=== PATIENT | female | born 1970 | race Caucasian/White ===

== ENCOUNTER → 2023-11-17 14:33 | Outpatient (BNVA) | payer OTHER, SELFPAY | PROVIDERS: Visit Provider Nurse Practitioner Family | DX: R39.9 Unspecified symptoms and signs involving the genitourinary system | CPT/HCPCS: 81000 ==

== ENCOUNTER → 2023-12-18 10:05 | Outpatient (BNVA) | payer OTHER, SELFPAY | PROVIDERS: Visit Provider Family Medicine | DX: I10 Essential (primary) hypertension (principal) | CPT/HCPCS: 80053; 80061; 82043; 84443; 85025 ==

== ENCOUNTER → 2024-03-16 10:35 | Outpatient (BNVA) | payer OTHER, SELFPAY | PROVIDERS: Visit Provider Family Medicine | DX: R30.0 Dysuria (principal); Z13.6 Encounter for screening for cardiovascular disorders; M15.9 Polyosteoarthritis, unspecified; E78.5 Hyperlipidemia, unspecified; F41.1 Generalized anxiety disorder; I10 Essential (primary) hypertension; Z12.11 Encounter for screening for malignant neoplasm of colon | CPT/HCPCS: 81000; 85025 ==

== ENCOUNTER → 2024-03-19 07:48 | Outpatient (BNVA) | payer OTHER, SELFPAY | PROVIDERS: Visit Provider Family Medicine | DX: E78.5 Hyperlipidemia, unspecified (principal); K21.9 Gastro-esophageal reflux disease without esophagitis; I10 Essential (primary) hypertension; Z76.89 Persons encountering health services in other specified circumstances; M15.9 Polyosteoarthritis, unspecified; Z13.6 Encounter for screening for cardiovascular disorders; R30.0 Dysuria | CPT/HCPCS: 80053; 85025; 85651; 86038; 86140; 86200; 86431; 87086 ==

== ENCOUNTER 2024-03-25 10:10 | Day surgery (SDC) | payer OTHER, SELFPAY ==
[2024-03-25 10:27] VITALS: BP 140/92; PULSE 92; RESP 18; TEMP 36.4; O2SAT 94; BMI 33.5
[2024-03-25] MEDS: sodium chloride 0.9% 1,000 ML 30 ML IV (10:39)
--- NOTE | 2024-03-25 11:18 | ANES.PREANE2 ---
Pre-Anesthetic Assessment Height/Weight: Height 1.63 m Weight 88.451 kg Temp Pulse Resp BP Pulse Ox O2 Del Method 97.5 F L 92 18 140/92 94 Room Air 03/25/24 10:27 03/25/24 10:27 03/25/24 10:27 03/25/24 10:27 03/25/24 10:27 03/25/24 10:27 Preop Diagnosis: GERD/Screening Operation Date: 03/25/24 11:20 Proposed Procedures p EGD 06557, 37021, G0105, K21.9, Z12.11(Not Applicable) - Wesley Jaeger MD s Colonoscopy(Not Applicable) - Wesley Jaeger MD Familial anesthetic complications: None Was Beta Roldan taken within 24 hours: N/A Was Clonidine taken within 24 hours: N/A Last intake: Intake Last Liquid Date 03/24/24 Last Liquid Time 23:00 Last Solid Date 03/23/24 Last Solid Time 18:00 Social No alcohol and No tobacco Exam alert, oriented x 3, clear to auscultation bilaterally and regular rate & rhythm Airway Submandibular: within normal limits Cervical ROM: Other (Decreased ROM) Mallampati: Class III Comments: Comments: Missing History/ROS No significant history except as noted and No significant complaints Pulmonary Asthma and Sleep Apnea (CPAP) CV/HEM Hypertension Urinary Tract Infection Hx kidney stones Hepatic None reported GI Gastroesophageal Reflux Disease (Well controlled with meds) Metabolic Hyperlipidemia [facility] [place] Lower Back Pain and Osteoarthritis/DJD Neuropsych Anxiety, Depression and Neuropathy Anesthetic Plan ASA status: 3 Anesthesia: Anesthesia Evaluation, General and MAC Risk of > 500 ml blood loss (7ml/kg in children): No Medications/Allergies Home Medications Medication Instructions Recorded Confirmed Last Taken Type tizanidine 2 mg tablet 2 mg PO TID PRN muscle spasticity 12/18/23 03/25/24 03/24/24 Rx #270 tabs atorvastatin 40 mg tablet 40 mg PO DAILY #90 tabs 03/16/24 03/25/24 03/24/24 Rx duloxetine 30 mg capsule,delayed 30 mg PO DAILY #90 caps 03/16/24 03/25/24 03/24/24 Rx release (Cymbalta) duloxetine 60 mg capsule,delayed 60 mg PO DAILY #90 caps 03/16/24 03/25/24 03/24/24 Rx release lisinopril 20 mg tablet 20 mg PO DAILY #90 tabs 03/16/24 03/25/24 03/24/24 Rx nitrofurantoin macrocrystal 100 mg 100 mg PO BID #20 caps 03/16/24 03/25/24 03/24/24 Rx capsule pantoprazole 40 mg tablet,delayed 40 mg PO BID #180 tabs 03/16/24 03/25/24 03/24/24 Rx release Allergies Allergy/AdvReac Type Severity Reaction Status Date / Time No Known Allergies Allergy Unverified 03/23/24 11:37 Current Medications Generic Name Dose Route Start Last Admin Trade Name Freq PRN Reason Stop Dose Admin Sodium Chloride 1,000 mls @ 30 mls/hr 03/25/24 10:30 03/25/24 10:39 Sodium Chloride 0.9% IV 30 mls/hr .Q24H SREEDHAR Administration PFSH Anesthesia Medical History History of kidney stones Stent x 2, lithotripsy x 2 Dyslipidemia Osteoarthritis involving multiple joints on both sides of body ELDER (generalized anxiety disorder) Major depressive disorder GERD (gastroesophageal reflux disease) Benign essential HTN Surgical History History of partial hysterectomy 2016 History of cholecystectomy History of delivery x 4 Family History Grandmother Diabetes mellitus, type 2 Heart disease Hypertension Mother Hypertension Stroke Social History Smoking and tobacco/nicotine status: never used tobacco/nicotine Alcohol intake: current Alcohol intake frequency: holidays/special occasions only Substance/Drug Use: never Household members: spouse and children Housing: House Marital status: Highest education level completed: Associate Degree: Occupational, Technical, Vocational Program Current occupational status: employed Data Anesthesia Cardiac Studies: No Data to Display
--- NOTE | 2024-03-25 11:28 | W.PM.OPSFHP ---
Same Day Surgery H&P Indication for Procedure/HPI DATE OF PROCEDURE: March 25, 2024 CHIEF COMPLAINT/INDICATIONFOR SURGICAL PROCEDURE: GERD and need for screening colonoscopy PREOP DIAGNOSIS: GERD/Screening PLANNED PROCEDURE: Operation Date: 03/25/24 11:20 Proposed Procedures p EGD 77410, 81030, G0105, K21.9, Z12.11(Not Applicable) - Wesley Jaeger MD s Colonoscopy(Not Applicable) - Wesley Jaeger MD Medications/Allergies* Allergies/Adverse Reactions Allergy/AdvReac Type Severity Reaction Status Date / Time No Known Allergies Allergy Unverified 03/23/24 11:37 Current Medications: Generic Name Dose Route Start Last Admin Trade Name Freq PRN Reason Stop Dose Admin Sodium Chloride 1,000 mls @ 30 mls/hr 03/25/24 10:30 03/25/24 10:39 Sodium Chloride 0.9% IV 30 mls/hr .Q24H SREEDHAR Administration Pertinent History/Comorbid Conditions* Medical History (Updated 03/24/24 @ 07:22 by Dania Hinojosa DO) History of kidney stones Stent x 2, lithotripsy x 2 Dyslipidemia Osteoarthritis involving multiple joints on both sides of body ELDER (generalized anxiety disorder) Major depressive disorder GERD (gastroesophageal reflux disease) Benign essential HTN Surgical History (Updated 12/18/23 @ 09:42 by Dania Hinojosa DO) History of partial hysterectomy 2016 History of cholecystectomy History of delivery x 4 Family History (Updated 12/18/23 @ 09:15 by Pallavi Brandon LPN) Grandmother Mother Diabetes mellitus, type 2 Grandmother Heart disease Grandmother Hypertension Grandmother Mother Stroke Mother Social History Smoking and tobacco/nicotine status: never used tobacco/nicotine Alcohol intake: current Alcohol intake frequency: holidays/special occasions only Substance/Drug Use: never Household members: spouse and children Housing: House Marital status: Highest education level completed: Associate Degree: Occupational, Technical, Vocational Program Current occupational status: employed Pertinent Exam Findings alert, oriented x 3, clear to auscultation bilaterally and regular rate & rhythm Recommendations Surgery/Procedure today Coding Level of Care Code Acute Code for Chg Fwd
[2024-03-25 12:45] VITALS: BP 141/83; PULSE 67; RESP 18; TEMP 36.2; O2SAT 95
[2024-03-25 12:57] VITALS: BP 137/99; PULSE 72; RESP 18; TEMP 36.2; O2SAT 95
--- NOTE | 2024-03-25 13:20 | ANE.PACU2 ---
Inpatient post-anesthesia follow up: Airway intact: Yes Vital signs: Temperature 97.2 F Pulse Rate 72 Respiratory Rate 18 Blood Pressure 137/99 Pulse Oximetry 95 Oxygen Delivery Me thod Room Air Oxygen Flow Rate Fraction of Inspir ed Oxygen Hydration adequate: Yes Nausea and vomiting: No Pain level: 1 Mental status: Baseline
== END 2024-03-25 13:20 | disposition home or self-care (01) ==
PROVIDERS: PCP Family Medicine; Visit Provider Surgery
PROC: 0DJ08ZZ Inspection of Upper Intestinal Tract, Via Natural or Artificial Opening Endoscopic (ICD-10-PCS; CPT 43235; principal; 2024-03-25 11:20)
PROC: 0DJD8ZZ Inspection of Lower Intestinal Tract, Via Natural or Artificial Opening Endoscopic (ICD-10-PCS; CPT 45330; 2024-03-25 11:20)
DX: Z12.11 Encounter for screening for malignant neoplasm of colon (principal); K21.9 Gastro-esophageal reflux disease without esophagitis; K29.50 Unspecified chronic gastritis without bleeding; K57.30 Diverticulosis of large intestine without perforation or abscess without bleeding; E78.5 Hyperlipidemia, unspecified; F41.1 Generalized anxiety disorder; F32.A Depression, unspecified; I10 Essential (primary) hypertension; K44.9 Diaphragmatic hernia without obstruction or gangrene
CPT/HCPCS: 43239; 45330; 88305; 88342; J2704; J3010; J7030

== ENCOUNTER 2024-04-30 09:46 | Outpatient (CLI) | payer OTHER, SELFPAY ==
--- NOTE | 2024-04-30 10:00 | MM_ITS ---
WS: [id number] BILATERAL SCREENING DIGITAL TOMOSYNTHESIS MAMMOGRAM WITH CAD HISTORY: screening COMPARISON: 02/21/2021, 11/30/2018 Bilateral CC and MLO views with tomosynthesis and synthetic mammography submitted. Computer aided det ection analyzed. Breast composition: The breasts are heterogeneously dense, which may obscure small masses. No suspici ous masses, microcalcifications or architectural distortion. Scattered calcifications within each sommer ast. MM/[place] [id number] IMPRESSION: BI-RADS: 2-Benign FOLLOW UP: 1 Year Follow-up
== END 2024-04-30 09:47 | disposition home or self-care (01) ==
LOC: RAD 09:47
PROVIDERS: PCP Family Medicine; Visit Provider Family Medicine
DX: Z12.31 Encounter for screening mammogram for malignant neoplasm of breast (principal); R92.333 Mammographic heterogeneous density, bilateral breasts; R92.1 Mammographic calcification found on diagnostic imaging of breast
CPT/HCPCS: 77063; 77067

== ENCOUNTER 2024-05-12 09:18 | Emergency (ER) | payer OTHER, SELFPAY ==
--- NOTE | 2024-05-12 09:39 | CT_ITS ---
WS: [id number] CT ABDOMEN AND PELVIS NONCONTRAST HISTORY: flank pain TECHNIQUE: Imaging performed through the abdomen and pelvis. Coronal and sagittal reformats are submi tted. All CT scans at [facility] use at least one of these dose optimization techniques: auto mated exposure control; mA and/or kV adjustment per patient size (includes targeted exams where dose is matched to clinical indication); or iterative reconstruction. DLP: 926.46 mGy.cm COMPARISON: 01/29/2013 Lower thorax: Lung bases are clear. Visualized heart is normal. No hiatal hernia. Liver: Normal size liver. No mass or bile duct dilatation. Gallbladder: Prior cholecystectomy. Normal common bile duct. Pancreas: Normal size and attenuation. Normal pancreatic duct. No pancreatitis or mass. Spleen: Normal. Adrenal glands: Normal. No mass. Right kidney: Normal size kidney. Very minimal peripancreatic stranding and edema. No obstruction. Left kidney: LEFT kidney is normal size. There 2 masses associated with the LEFT kidney. Which is sup erior pole there is a cystic mass measuring 5.5 x 6.1 x 6.7 cm with low Hounsfield units. This mass w as also described in 2013 but is increased in size. There is a new hyperdense mass with elevated Houn sfield units measuring 3.9 x 4.5 x 4.2 cm. This additional hyperdense masses in the mid posterior kid tom. Small extrarenal pelvis. No ureteral calcifications. Aorta: Mild atherosclerosis abdominal aorta with no aneurysm. Small mesenteric and celiac axis lymph nodes. Small RIGHT lower quadrant lymph nodes. GI tract: Stomach is nondistended. No small bowel obstruction. Appendix is normal. Mild diffuse const ipation. Numerous diverticula without acute diverticulitis. Abdominal wall: Negative. No hernia. Pelvis: Prior hysterectomy. No pelvic masses or free fluid. Urinary bladder is not distended. Osseous structures: Mixed sclerotic and lytic lesion in the RIGHT femoral neck stable since 2012. CT/CT abdomen pelvis wo con [id number] IMPRESSION: 1. No renal obstruction or hydronephrosis. 2. New high density mass in the posterior mid LEFT kidney measures 3.9 x 4.5 x 4.2 cm. Indeterminate for neoplasm. This may be a cyst with increased protein content or hemorrhage or neoplasm. Recommend follow-up renal ultrasound. This c yst may not be visible by ultrasound due to patient's body habitus and location . Recommend ultrasound initially. If this mass cannot be confirmed as a cyst CT renal mass protocol should be obtained. 3. Additional cyst in the superior pole LEFT kidney with mild increase in size since 2012. This cyst measures 5.5 x 6.1 x 6.7 cm. 4. Prior cholecystectomy. 5. Normal appendix. 6. Mild diverticular disease without acute diverticulitis. 7. No adenopathy.
[2024-05-12 09:41] VITALS: BP 150/95; PULSE 80; RESP 18; TEMP 36.8; O2SAT 95; BMI 33.5
[2024-05-12 10:01] LABS: Bilirubin Urine Negative (Negative); Blood Urine Negative (Negative); Glucose Urine UA Negative (Normal); Ketones Urine Negative (Negative); Leukocyte Esterase Urine Trace (Negative); Nitrate Urine Negative (Negative); Protein Urine Negative (Negative); Specific Gravity, Urine 1.026 (1.005-1.030); Urine Appearance Clear (CLEAR); Urine Color Yellow (Yellow)
[2024-05-12 10:01] LABS: Basophils # 0.1 10^3/uL (0.0-0.1); Basophils % 0.9 %; Eosinophils # 0.2 10^3/uL (0.0-0.8); Hematocrit 39.3 % (36-47); Lymphocytes # 1.5 10^3/uL (0.8-4.8); Lymphocytes % 22.9 %; Mean Corpuscular HGB Conc 32.1 g/dL (30-55); Mean Corpuscular Hemoglobin 29.6 pg (27-33); Mean Corpuscular Volume 92.3 fl (85-98); Mean Platelet Volume 9.6 fL (7.4-10.4); Monocytes # 0.5 10^3/uL (0.2-0.9); Monocytes % 7.3 %; Neutrophils # 4.43 10^3/uL (1.8-7.7); Neutrophils % 65.8 %; Nucleated Red Blood Cells % 0 %; Platelet Count 305 10^3/cmm (157-399); Red Blood Count 4.26 10^6/uL (3.85-5.65); Red Cell Distribution Width 13.3 % (12.1-15.1); White Blood Count 6.73 10^3/uL (3.29-11.43)
[2024-05-12 10:03] LABS: Bacteria Urine Trace /hpf; Hyaline Casts Urine 1.65 /lpf; RBC Urine 0-2 /hpf (0-2); WBC Urine 0-5 /hpf (0-5)
--- NOTE | 2024-05-12 10:09 | ED_ITS ---
HPI - Back Pain/Injury 2 General: Chief Complaint: Back Pain/Injury Stated Complaint: back/abd pain Time Seen by Provider: 05/12/24 09:33 History of Present Illness: 53-year-old female who presents emergenc y room with right flank pain. She says felt like it started when she was lifting something heavy at work. On the right side. But today it started hurting into her abdomen. She has tender spots throughout her right abdomen. Nothing really focal. She has some pain with movement. No dysuria. No fevers. No nausea or vomiting. Review of Systems 2 Narrative: Constitutional symptoms: Negative except as documented in HPI. Skin symptoms: Negative except as documented in HPI. Eye symptoms: Negative except as documented in HPI. ENMT symptoms: Negative except as documented in HPI. Respiratory symptoms: Negative except as documented in HPI. Cardiovascular symptoms: Negative except as documented in HPI. Gastrointestinal symptoms: Negative except as documented in HPI. Genitourinary symptoms: Negative except as documented in HPI. Musculoskeletal symptoms: Negative except as documented in HPI. Neurologic symptoms: Negative except as documented in HPI. Psychiatric symptoms: Negative except as documented in HPI. Endocrine symptoms: Negative except as documented in HPI. PFSH ED 2 PFSH: Medical History History of kidney stones Stent x 2, lithotripsy x 2 Dyslipidemia Osteoarthritis involving multiple joints on both sides of body ELDER (generalized anxiety disorder) Major depressive disorder GERD (gastroesophageal reflux disease) Benign essential HTN Surgical History History of partial hysterectomy 2016 History of cholecystectomy History of delivery x 4 Family History Grandmother Diabetes mellitus, type 2 Heart disease Hypertension Mother Hypertension Stroke Social History Smoking and tobacco/nicotine status: never used tobacco/nicotine Alcohol intake: current Alcohol intake frequency: holidays/special occasions only Substance/Drug Use: never Household members: spouse and children Housing: House Marital status: Highest education level completed: Associate Degree: Occupational, Technical, Vocational Program Current occupational status: employed Physical Exam 2 Narrative: EXAM NARRATIVE: General: Alert, no acute distress. Skin: Warm, dry. Head: Normocephalic, atraumatic. Neck: Supple, trachea midline. Eye: Extraocular movements are intact. Ears, nose, mouth and throat: mucosa moist. Cardiovascular: Regular, Normal peripheral perfusion. Respiratory: Lungs are clear to auscultation, respirations are non-labored, breath sounds are equal, Symmetrical chest wall expansion. Gastrointestinal: Soft, mild right flank pain, Non distended Musculoskeletal: Normal ROM, no deformity. Neurological: Alert and oriented, No focal neurological deficit observed. Psychiatric: Cooperative, appropriate mood & affect. Course 2 Vital Signs: Vital signs: Vital Signs Temperature 98.3 F 05/12/24 09:41 Pulse Rate 72 05/12/24 11:00 Respiratory Rate 18 05/12/24 09:41 Blood Pressure 130/78 05/12/24 11:00 Pulse Oximetry 96 05/12/24 11:00 Oxygen Delivery Me thod Room Air 05/12/24 11:00 MDM - Back Pain/Injury Medical Decision Making Medical decision making: Differential diagnosis including but not limited to and based on the above HPI, review of systems and physical exam: Ureterolithiasis. Urinary tract infection. Appendicitis. Cholecystis. Musculoskeletal / back pain. Pyelonephritis Orders placed to evaluate differential diagnosis based on the above differential, HPI and physical exam Lab Review: Laboratory results were reviewed and interpreted by myself the emergency room physician. Lab work is fairly unremarkable. BUN/creatinine are slightly elevated at 22 and 1.1 but near her baseline. No leukocytosis. Urinalysis is clear. CT of the abdomen pelvis without contrast: No signs of kidney stones. She has a left renal cyst that was present previously but a new lesion that appears like it might be solid on CT. Ultrasound was recommended. This was reviewed and interpreted by myself the emergency room physician. I also reviewed the radiology report. I also spoke with the radiologist on-call about these findings and she recommends an ultrasound. Ultrasound: This does appear to be a solid mass and will need further workup with urology. I reviewed the patient's medical record. Reexamination: Patient remained stable. No increased work of breathing. No altered mental status. No focal motor deficits. Discussed findings of the CT and ultrasound and that she needs follow-up with her primary and then likely with urology. Assessment and plan: Right back pain Left renal mass ?Toradol and Flexeril in the emergency room. - Discharged home - Discussed findings and plan with patient. Answered any questions. - All laboratory values were reviewed and interpreted personally by myself, the ER physician - All imaging was reviewed and interpreted personally by myself, the ER physician. - Evaluation and treatment of this problem were appropriate in the emergency setting Labs 05/12/24 09:46 05/12/24 09:46 Radiology Impressions Abdomen/Pelvis CT 05/12/24 09:39 IMPRESSION: 1. No renal obstruction or hydronephrosis. 2. New high density mass in the posterior mid LEFT kidney measures 3.9 x 4.5 x 4.2 cm. Indeterminate for neoplasm. This may be a cyst with increased protein content or hemorrhage or neoplasm. Recommend follow-up renal ultrasound. This cyst may not be visible by ultrasound due to patient's body habitus and location. Recommend ultrasound initially. If this mass cannot be confirmed as a cyst CT renal mass protocol should be obtained. 3. Additional cyst in the superior pole LEFT kidney with mild increase in size since 2012. This cyst measures 5.5 x 6.1 x 6.7 cm. 4. Prior cholecystectomy. 5. Normal appendix. 6. Mild diverticular disease without acute diverticulitis. 7. No adenopathy. Laboratory Results WBC 6.73 10^3/uL (3.29-11.43) 05/12/24 09:46 RBC 4.26 10^6/uL (3.85-5.65) 05/12/24 09:46 Hgb 12.60 g/dL (11.27-16.99) 05/12/24 09:46 Hct 39.3 % (36-47) 05/12/24 09:46 MCV 92.3 fl (85-98) 05/12/24 09:46 MCH 29.6 pg (27-33) 05/12/24 09:46 MCHC 32.1 g/dL (30-55) 05/12/24 09:46 RDW 13.3 % (12.1-15.1) 05/12/24 09:46 Plt Count 305 10^3/cmm (157-399) 05/12/24 09:46 MPV 9.6 fL (7.4-10.4) 05/12/24 09:46 Neut % (Auto) 65.8 % 05/12/24 09:46 Lymph % (Auto) 22.9 % 05/12/24 09:46 [place] % (Auto) 7.3 % 05/12/24 09:46 Eos % (Auto) 3.0 % 05/12/24 09:46 Baso % (Auto) 0.9 % 05/12/24 09:46 Neut # (Auto) 4.43 10^3/uL (1.8-7.7) 05/12/24 09:46 Lymph # (Auto) 1.5 10^3/uL (0.8-4.8) 05/12/24 09:46 [place] # (Auto) 0.5 10^3/uL (0.2-0.9) 05/12/24 09:46 Eos # (Auto) 0.2 10^3/uL (0.0-0.8) 05/12/24 09:46 Baso # (Auto) 0.1 10^3/uL (0.0-0.1) 05/12/24 09:46 Nucleated RBC % (auto) 0 % 05/12/24 09:46 Nucleated RBCs # 0.0 /100WBC 05/12/24 09:46 Sodium 142 mmol/L (136-145) 05/12/24 09:46 Potassium 4.5 mmol/L (3.5-5.1) 05/12/24 09:46 Chloride 108 mmol/L (98-107) H 05/12/24 09:46 Carbon Dioxide 20 mmol/L (22-29) L 05/12/24 09:46 Anion Gap 18.5 (5-19) 05/12/24 09:46 BUN 22 mg/dL (6-20) H 05/12/24 09:46 Creatinine 1.1 mg/dL (0.5-0.9) H 05/12/24 09:46 GFR Calculation 52.0 mL/min (90-130) L 05/12/24 09:46 Glucose 104 mg/dL (65-115) 05/12/24 09:46 Calculated Osmolality 298 mOsm/kg (285-295) H 05/12/24 09:46 Calcium 9.6 mg/dL (8.5-10.5) 05/12/24 09:46 Total Bilirubin 0.5 mg/dL (0.15-1.2) 05/12/24 09:46 AST 18 U/L (0-32) 05/12/24 09:46 ALT 14 U/L (0-33) 05/12/24 09:46 Alkaline Phosphatase 111 U/L (35-105) H 05/12/24 09:46 Total Protein 7.6 g/dL (6.6-8.7) 05/12/24 09:46 Albumin 4.5 g/dL (3.5-5.2) 05/12/24 09:46 Globulin 3.1 g/dL (1.3-4.6) 05/12/24 09:46 Urine Color Yellow (Yellow) 05/12/24 09:52 Urine Appearance Clear (CLEAR) 05/12/24 09:52 Urine pH 5.0 (5-7) 05/12/24 09:52 Ur Specific [place] 1.026 (1.005-1.030) 05/12/24 09:52 Urine Protein Negative (Negative) 05/12/24 09:52 Urine Glucose (UA) Negative (Normal) 05/12/24 09:52 Urine Ketones Negative (Negative) 05/12/24 09:52 Urine Blood Negative (Negative) 05/12/24 09:52 Urine Nitrate Negative (Negative) 05/12/24 09:52 Urine Bilirubin Negative (Negative) 05/12/24 09:52 Urine Urobilinogen 1.0 mg/dL (Negative) 05/12/24 09:52 Ur Leukocyte Esterase Trace (Negative) A 05/12/24 09:52 Urine RBC 0-2 /hpf (0-2) 05/12/24 09:52 Urine WBC 0-5 /hpf (0-5) 05/12/24 09:52 Ur Squamous Epith Cells 6-10 /hpf (0-5) 05/12/24 09:52 Amorphous Sediment Not Reportable 05/12/24 09:52 Urine Bacteria Trace /hpf (NONE) 05/12/24 09:52 Hyaline Casts 1.65 /lpf 05/12/24 09:52 All radiology interpretation(s) finalized by discharge Discharge Plan Discharge Patient Disposition: Home Clinical Impression: Strain of lumbar region, Left renal mass Condition: Stable Prescriptions: New diclofenac sodium 50 mg tablet,delayed release (DR/EC) 50 mg PO BID PRN (Reason: pain) Qty: 14 0RF cyclobenzaprine 5 mg tablet 5 mg PO BEDTIME PRN (Reason: muscle spasm) Qty: 10 0RF No Action tizanidine 2 mg tablet 2 mg PO TID PRN (Reason: muscle spasticity) Qty: 270 0RF atorvastatin 40 mg tablet 40 mg PO DAILY Qty: 90 1RF duloxetine [Cymbalta] 30 mg capsule,delayed release(DR/EC) 30 mg PO DAILY Qty: 90 0RF Rx Instructions: ALONG WITH 60MG TO=90MG TOTAL duloxetine 60 mg capsule,delayed release(DR/EC) 60 mg PO DAILY Qty: 90 0RF Rx Instructions: ALONG WITH 360MG TO=90MG TOTAL lisinopril 20 mg tablet 20 mg PO DAILY Qty: 90 0RF sucralfate 100 mg/mL suspension 10 ml PO BID pantoprazole 40 mg tablet,delayed release (DR/EC) 40 mg PO DAILY Discharge Orders: Discharge ED (Routine); Ordered 05/12/24 Ordered By: Kathy Castano Discharge Diet: Usual diet Discharge Activity: Increase activity as tolerated Patient Instructions: Low Back Strain (ED) Activity Restrictions/Additional Instructions: You need to have prompt follow-up with your primary provider concerning the mass that was found on your kidney. You likely will need follow-up with a urologist. Thank you for choosing [facility] for your healthcare needs today. Please realize this is an emergency room and that we are providing you with a medical screening exam and this may not be complete and all inclusive of all the testing and or work up that you may need to determine your ailment or severity of your illness. You have been screened and evaluated and felt safe for discharge. Health conditions do change or evolve sometimes and as such it is important that you follow up with your Primary Doctor to be re checked, 3-5 days is a general good time frame for follow up. You are always welcome to return to the ED for re assessment if your symptoms are worsening or you have new concerns Coding Level of Care Code ED Short Piece Handler for Bailey Morales
[2024-05-12 10:17] LABS: Alanine Aminotransferase 14 U/L (0-33); Albumin Level 4.5 g/dL (3.5-5.2); Alkaline Phosphatase 111 U/L (35-105); Anion Gap 18.5 (5-19); Aspartate Amino Transferase 18 U/L (0-32); Blood Urea Nitrogen 22 mg/dL (6-20); Calcium 9.6 mg/dL (8.5-10.5); Carbon Dioxide 20 mmol/L (22-29); Chloride 108 mmol/L (98-107); Creatinine Clr Calc Pharmacy 63.6795; Globulin 3.1 g/dL (1.3-4.6); Glucose 104 mg/dL (65-115); Osmolality Calculated 298 mOsm/kg (285-295); Potassium 4.5 mmol/L (3.5-5.1); Sodium 142 mmol/L (136-145); Total Bilirubin 0.5 mg/dL (0.15-1.2); Total Protein 7.6 g/dL (6.6-8.7)
--- NOTE | 2024-05-12 10:47 | US_ITS ---
WS: [id number] RENAL ULTRASOUND HISTORY: abnormal finding on left kidney COMPARISON: CT 05/12/2024, 01/29/2013 TECHNIQUE: 2-D and color Doppler imaging of the kidney submitted. Right kidney: 12.1 cm x 4.6 cm x 4.5 cm. Cortex: 1.4 cm Normal echogenicity with no hydronephrosis or mass. Left kidney: 12.8 cm x 5.8 cm x 4.3 cm. Cortex: 1.1 cm Normal size kidney. No obstruction. Reidentified is a cyst extending laterally from the mid to upper kidney measuring 7.0 x 5.5 x 6.4 cm. No solid component or increased vascularity. There is an additio nal mass with solid and cystic component extending posteriorly from the mid to superior kidney. There is additional solid and cystic mass measures 4.4 x 3.8 x 4.0 cm. This corresponds to the high densit y mass seen on the CT. There is an intraluminal mural component which is solid measuring 2.5 x 3.6 x 3.2 cm. No definite increased vascularity is identified. Aorta: Normal. Urinary Bladder: Nondistended. US/US renal BI* [id number] IMPRESSION: 1. Solid mass with cystic component in the LEFT kidney. This corresponds to th e new mass described on the recent CT of increased attenuation. Entire mass jaren sures 4.4 x 3.8 x 4.0 cm with a mural soft tissue nodule. Suspicious for renal cell neoplasm until proven otherwise. Recommend follow-up evaluation by urology and follow-up renal mass CT protocol. 2. Large LEFT renal cyst with no solid component. Simple cyst. 3. No obstruction of either kidney.
[2024-05-12 10:48] VITALS: BP 143/87; PULSE 73; O2SAT 97
[2024-05-12] MEDS: ketorolac 30 mg/mL INJ 15 MG IVP (10:57)
[2024-05-12 11:00] VITALS: BP 130/78; PULSE 72; O2SAT 96
[2024-05-12] MEDS: cyclobenzaprine 10 mg Tablet PO (11:00)
[2024-05-12 12:21] VITALS: BP 145/80; PULSE 66; O2SAT 96
== END 2024-05-12 11:55 | disposition home or self-care (01) ==
PROVIDERS: Emergency Provider Emergency Medicine
DX: S39.012A Strain of muscle, fascia and tendon of lower back, initial encounter (principal); N28.89 Other specified disorders of kidney and ureter; E78.5 Hyperlipidemia, unspecified; I10 Essential (primary) hypertension; X50.0XXA Overexertion from strenuous movement or load, initial encounter
CPT/HCPCS: 74176; 76770; 80053; 81001; 85025; 96374; 99285; J1885

== ENCOUNTER → 2024-06-09 09:46 | Outpatient (BNVA) | payer OTHER, SELFPAY | DX: I10 Essential (primary) hypertension (principal); E78.5 Hyperlipidemia, unspecified | CPT/HCPCS: 80053; 80061 ==

== ENCOUNTER → 2024-06-17 08:57 | Outpatient (BNVA) | payer OTHER, SELFPAY | DX: I10 Essential (primary) hypertension (principal); E78.5 Hyperlipidemia, unspecified | CPT/HCPCS: 80053; 80061 ==

== ENCOUNTER 2024-07-17 11:57 | Emergency (ER) | payer OTHER, SELFPAY ==
[2024-07-17] VITALS (8 sets, daily range): BP systolic 154–165; BP diastolic 85–98; PULSE 62–92; RESP 17–19; TEMP 36.9; O2SAT 97–100; BMI 34.0
--- NOTE | 2024-07-17 12:26 | ECG_ITS ---
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 Measurements Intervals [place] Rate: 73 P: 21 MA: 154 QRS: -5 QRSD: 93 T: 12 QT: 387 QTc: 428 Interpretive Statements SINUS RHYTHM MODERATE VOLTAGE CRITERIA FOR LVH, CONSIDER NORMAL VARIANT [MEETS CRITERIA IN ONE OF: R(aVL), S(V1), R(V5), R(V5/V6)+S(V1)] No previous ECG available for comparison Electronically Signed On 07-19-2024 14:12:54 CDT by Mikey Chappell M.D. [id number]
--- NOTE | 2024-07-17 12:32 | CTR_ITS ---
PROCEDURE INFORMATION: Exam: CT Head Without Contrast Exam date and time: 07/17/2024 12:57 PM Age: 53 years old Clinical indication: Stroke-like symptoms; Altered mental status/memory loss and speech disturbance; Additional info: Symptoms of acute stroke TECHNIQUE: Imaging protocol: Computed tomography of the head without contrast. Radiation optimization: All CT scans at this facility use at least one of these dose optimization techniques: automated exposure control; mA and/or kV adjustment per patient size (includes targeted exams where dose is matched to clinical indication); or iterative reconstruction. Other technique: STROKE PROTOCOL was implemented. COMPARISON: No relevant prior studies available. RADIATION DOSE METRICS: Total DLP (mGy-cm): 1100.35 FINDINGS: Brain: Normal. No hemorrhage. Unremarkable white matter. No mass effect. Cerebral ventricles: No ventriculomegaly. Paranasal sinuses: Visualized sinuses are unremarkable. No fluid levels. Mastoid air cells: Visualized mastoid air cells are well aerated. Bones: Unremarkable. No acute fracture. Soft tissues: Right nasal ring. CT/CT head thrombolytic [id number] IMPRESSION: No acute intracranial abnormality. ASSESSMENT: ASPECTS ([place] Stroke Program Early CT Score) is 10.
--- NOTE | 2024-07-17 12:42 | W.ED.DIZZY ---
HPI - Dizziness General: Chief Complaint: Dizziness Stated Complaint: dizziness/confusion/talking real slow Time Seen by Provider: 07/17/24 12:32 History of Present Illness: HPI Narrative: 53-year-old female who presents to the emergency room dizziness confusion talking slowly. 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 She was not doing anything stressful or exertional she is began to feel lightheaded dizzy just generally did not feel well and went back to the employee area and leaned against a shelf for a bit and eventually coworkers helped her into a wheelchair and her was called to come and get her. She states she still does not feel well. Her reported that for a time he felt that her right lip was drooping and speech was altered. Her speech at this time is normal and she is a's little bit of difficulty with word finding but is able to enunciate. Her stroke score is 0 otherwise. Associated symptoms: Denies chest pain or chills Related Data Previous Rx's Medication Instructions Recorded tizanidine 2 mg tablet 2 mg PO TID PRN muscle spasticity 12/18/23 #270 tabs duloxetine 60 mg capsule,delayed 60 mg PO DAILY #90 caps 03/16/24 release lisinopril 20 mg tablet 20 mg PO DAILY #90 tabs 03/16/24 cyclobenzaprine 5 mg tablet 5 mg PO BEDTIME PRN muscle spasm 05/12/24 #10 tabs diclofenac sodium 50 mg 50 mg PO BID PRN pain #60 tabs 05/14/24 tablet,delayed release duloxetine 30 mg capsule,delayed 30 mg PO DAILY #90 caps 05/14/24 release (Cymbalta) ezetimibe 10 mg tablet 10 mg PO DAILY #30 tabs 06/09/24 omeprazole 40 mg capsule,delayed 40 mg PO DAILY #30 caps 06/09/24 release aspirin 81 mg tablet,delayed 81 mg PO DAILY #30 tabs 07/17/24 release meclizine 25 mg tablet 25 mg PO QID PRN dizziness #20 tabs 07/17/24 Allergies Allergy/AdvReac Type Severity Reaction Status Date / Time No Known Allergies Allergy Verified 07/17/24 12:39 Review of Systems Const: Denies: fever(s) or chills Card: Denies: chest pain Resp: Denies: dyspnea GI: Denies: abdominal pain : Denies: dysuria, urinary frequency or urinary urgency Musc: Denies: neck pain or back pain Skin/Breast: Denies: rash PFSH ED PFSH: Medical History History of kidney stones Stent x 2, lithotripsy x 2 Dyslipidemia Osteoarthritis involving multiple joints on both sides of body ELDER (generalized anxiety disorder) Major depressive disorder GERD (gastroesophageal reflux disease) Benign essential HTN Surgical History History of partial hysterectomy 2016 History of cholecystectomy History of delivery x 4 Family History Grandmother Diabetes mellitus, type 2 Heart disease Hypertension Mother Hypertension Stroke Social History Smoking and tobacco/nicotine status: never used tobacco/nicotine Alcohol intake: current Alcohol intake frequency: holidays/special occasions only Substance/Drug Use: never Adopted: No Household members: spouse and children Housing: House Marital status: Highest education level completed: Associate Degree: Occupational, Technical, Vocational Program service: No Current occupational status: employed Current occupational exposures/hazards: No Physical Exam Const: GENERAL APPEARANCE: cooperative ORIENTATION/CONSCIOUSNESS: Yes awake, Yes oriented to person, Yes oriented to place and Yes oriented to time HENMT: COMMON NORMALS: normocephalic, atraumatic and hearing grossly normal bilaterally HEAD & SCALP: normocephalic and atraumatic Resp: COMMON NORMALS: normal respiratory effort, No retractions, No use of accessory muscles and clear to auscultation bilaterally AUSCULTATION: clear to auscultation bilaterally Cardio: COMMON NORMALS: regular rate, regular rhythm and No murmurs present (Cardio) RATE: regular rate RHYTHM: regular rhythm GI: COMMON NORMALS: Soft to palpation and No hepatosplenomegaly present AUSCULTATION: Yes normoactive bowel sounds PALPATION: Yes Soft to palpation, No Tenderness to palpation present (GI), No Guarding due to palpation present (GI) and Yes No hepatosplenomegaly present Extremity: COMMON NORMALS: normal to inspection, capillary refill normal, no clubbing, cyanosis or edema, no calf tenderness and no pedal edema Neuro: SENSORIUM/ORIENTATION: Yes oriented to person, Yes oriented to place and Yes oriented to time Skin: COMMON NORMALS: no rashes or lesions noted GENERAL SKIN EXAM: no rashes or lesions noted Course Vital Signs: Vital signs: Vital Signs Temperature 98.4 F 07/17/24 12:36 Pulse Rate 62 07/17/24 16:35 Respiratory Rate 18 07/17/24 13:30 Blood Pressure 155/88 07/17/24 16:35 Pulse Oximetry 99 07/17/24 16:35 Oxygen Delivery Me thod Room Air 07/17/24 12:36 MDM - Dizziness Medical Decision Making CT of the head negative. Symptoms are resolved we ambulated patient she does not have any ataxia either on exam while in bed or while ambulating. She has not had any nausea or vomiting. The symptoms are reproducible with movement of her head. Will start on meclizine to use as needed muscle and asked her to take a baby aspirin daily have her follow-up with her primary care doctor return if has any worsening or changes symptoms Medical Records I reviewed the patient's medical records. Lab Data I reviewed the patient's lab results. 07/17/24 12:52 07/17/24 12:[address] 07/17/24 12:32 IMPRESSION: No acute intracranial abnormality. ASSESSMENT: ASPECTS ([place] Stroke Program Early CT Score) is 10. Laboratory Results WBC 8.22 10^3/uL (3.29-11.43) 07/17/24 12:52 RBC 3.93 10^6/uL (3.85-5.65) 07/17/24 12:52 Hgb 11.30 g/dL (11.27-16.99) 07/17/24 12:52 Hct 36.5 % (36-47) 07/17/24 12:52 MCV 92.9 fl (85-98) 07/17/24 12:52 MCH 28.8 pg (27-33) 07/17/24 12:52 MCHC 31.0 g/dL (30-55) 07/17/24 12:52 RDW 13.1 % (12.1-15.1) 07/17/24 12:52 Plt Count 266 10^3/cmm (157-399) 07/17/24 12:52 MPV 9.2 fL (7.4-10.4) 07/17/24 12:52 Neut % (Auto) 69.7 % 07/17/24 12:52 Lymph % (Auto) 19.6 % 07/17/24 12:52 [place] % (Auto) 7.4 % 07/17/24 12:52 Eos % (Auto) 1.7 % 07/17/24 12:52 Baso % (Auto) 0.9 % 07/17/24 12:52 Neut # (Auto) 5.73 10^3/uL (1.8-7.7) 07/17/24 12:52 Lymph # (Auto) 1.6 10^3/uL (0.8-4.8) 07/17/24 12:52 [place] # (Auto) 0.6 10^3/uL (0.2-0.9) 07/17/24 12:52 Eos # (Auto) 0.1 10^3/uL (0.0-0.8) 07/17/24 12:52 Baso # (Auto) 0.1 10^3/uL (0.0-0.1) 07/17/24 12:52 Nucleated RBC % (auto) 0 % 07/17/24 12:52 Nucleated RBCs # 0.0 /100WBC 07/17/24 12:52 PT 12.30 SECONDS (12.1-14.9) 07/17/24 12:52 INR 0.89 (0.8-1.2) 07/17/24 12:52 APTT 25.7 SECONDS (23.9-36.7) 07/17/24 12:52 Sodium 139 mmol/L (136-145) 07/17/24 12:52 Potassium 4.3 mmol/L (3.5-5.1) 07/17/24 12:52 Chloride 105 mmol/L (98-107) 07/17/24 12:52 Carbon Dioxide 25 mmol/L (22-29) 07/17/24 12:52 Anion Gap 13.3 (5-19) 07/17/24 12:52 BUN 16 mg/dL (6-20) 07/17/24 12:52 Creatinine 0.9 mg/dL (0.5-0.9) 07/17/24 12:52 GFR Calculation 65.5 mL/min (90-130) L 07/17/24 12:52 Glucose 90 mg/dL (65-115) 07/17/24 12:52 POC Glucose 90 mg/dL (70-110) 07/17/24 12:28 Calculated Osmolality 289 mOsm/kg (285-295) 07/17/24 12:52 Calcium 8.8 mg/dL (8.5-10.5) 07/17/24 12:52 Total Bilirubin 0.2 mg/dL (0.15-1.2) 07/17/24 12:52 AST 19 U/L (0-32) 07/17/24 12:52 ALT 15 U/L (0-33) 07/17/24 12:52 Alkaline Phosphatase 117 U/L (35-105) H 07/17/24 12:52 Total Protein 7.0 g/dL (6.6-8.7) 07/17/24 12:52 Albumin 3.9 g/dL (3.5-5.2) 07/17/24 12:52 Globulin 3.1 g/dL (1.3-4.6) 07/17/24 12:52 Urine Color Yellow (Yellow) 07/17/24 13:47 Urine Appearance Clear (CLEAR) 07/17/24 13:47 Urine pH 5.5 (5-7) 07/17/24 13:47 Ur Specific [place] 1.009 (1.005-1.030) 07/17/24 13:47 Urine Protein Negative (Negative) 07/17/24 13:47 Urine Glucose (UA) Negative (Normal) 07/17/24 13:47 Urine Ketones Negative (Negative) 07/17/24 13:47 Urine Blood Negative (Negative) 07/17/24 13:47 Urine Nitrate Negative (Negative) 07/17/24 13:47 Urine Bilirubin Negative (Negative) 07/17/24 13:47 Urine Urobilinogen 1.0 mg/dL (Negative) 07/17/24 13:47 Ur Leukocyte Esterase 2+ (Negative) A 07/17/24 13:47 Urine RBC 0-2 /hpf (0-2) 07/17/24 13:47 Urine WBC 21-50 /hpf (0-5) H 07/17/24 13:47 Ur Squamous Epith Cells 6-10 /hpf (0-5) 07/17/24 13:47 Amorphous Sediment Not Reportable 07/17/24 13:47 Urine Bacteria 1+ /hpf (NONE) H 07/17/24 13:47 Hyaline Casts 0-4 /lpf H 07/17/24 13:47 Urine Opiates Screen Negative ng/mL (Negative) 07/17/24 13:47 Ur Barbiturates Screen Negative ng/mL (Negative) 07/17/24 13:47 Ur Phencyclidine Scrn Negative ng/mL (Negative) 07/17/24 13:47 Ur Amphetamines Screen Negative ng/mL (Negative) 07/17/24 13:47 U Benzodiazepines Scrn Positive ng/mL (Negative) H 07/17/24 13:47 Urine Cocaine Screen Negative ng/mL (Negative) 07/17/24 13:47 U Marijuana (THC) Screen Negative ng/mL (Negative) 07/17/24 13:47 All radiology interpretation(s) finalized by discharge Discharge Plan Discharge Patient Disposition: Home Clinical Impression: Benign paroxysmal positional vertigo Condition: Stable Prescriptions: New aspirin 81 mg tablet,delayed release (DR/EC) 81 mg PO DAILY Qty: 30 0RF meclizine 25 mg tablet 25 mg PO QID PRN (Reason: dizziness) Qty: 20 0RF No Action tizanidine 2 mg tablet 2 mg PO TID PRN (Reason: muscle spasticity) Qty: 270 0RF duloxetine 60 mg capsule,delayed release(DR/EC) 60 mg PO DAILY Qty: 90 0RF Rx Instructions: ALONG WITH 360MG TO=90MG TOTAL lisinopril 20 mg tablet 20 mg PO DAILY Qty: 90 0RF duloxetine [Cymbalta] 30 mg capsule,delayed release(DR/EC) 30 mg PO DAILY Qty: 90 0RF Rx Instructions: ALONG WITH 60MG TO=90MG TOTAL diclofenac sodium 50 mg tablet,delayed release (DR/EC) 50 mg PO BID PRN (Reason: pain) Qty: 60 0RF ezetimibe 10 mg tablet 10 mg PO DAILY Qty: 30 2RF omeprazole 40 mg capsule,delayed release(DR/EC) 40 mg PO DAILY Qty: 30 6RF cyclobenzaprine 5 mg tablet 5 mg PO BEDTIME PRN (Reason: muscle spasm) Qty: 10 0RF Discharge Orders: Discharge ED (Routine); Ordered 07/17/24 Ordered By: Arnol Lancaster Referrals: Elva Draper, TIERRA [Primary Care Provider] - Discharge Diet: Usual diet Discharge Activity: Increase activity as tolerated Patient Instructions: Opioid Safety, Pain Management Activity Restrictions/Additional Instructions: Thank you for choosing [facility] for your healthcare needs today. It is very important that you follow up as instructed or that you return to the Emergency Department should you have concerns or if your condition changes or worsens in any way. You were seen today for an episode of dizziness. Your stroke score was 0 CT of the head was negative. Recommend you take a baby aspirin daily is also use meclizine as needed follow-up with your doctor return if you have worsening or change symptoms Stand Alone Forms: Work/School Release Coding Level of Care Code ED Environmental Engineering Aide for Bailey Morales NIH stroke score NIHSS Level Of Consciousness - 1a: 0 Level Of Consciousness Questions - 1b: Both Correct Level Of Consciousness Commands - 1c: Both Correct Best Gaze - 2: Normal Visual [place] - 3: No Visual Loss Facial Palsy - 4: Normal Motor Arm Right - 5: No Drift Motor Arm Left - 5: No Drift Motor Leg Right - 6: No Drift Motor Leg Left - 6: No Drift Limb Ataxia - 7: Absent Sensory - 8: Normal Best Language - 9: No Aphasia Dysarthia - 10: Normal Extinction And Inattention - 11: 0 Score Total Score: 0
[2024-07-17 12:58] LABS: Basophils # 0.1 10^3/uL (0.0-0.1); Basophils % 0.9 %; Eosinophils # 0.1 10^3/uL (0.0-0.8); Eosinophils % 1.7 %; Hematocrit 36.5 % (36-47); Lymphocytes # 1.6 10^3/uL (0.8-4.8); Lymphocytes % 19.6 %; Mean Corpuscular Hemoglobin 28.8 pg (27-33); Mean Corpuscular Volume 92.9 fl (85-98); Mean Platelet Volume 9.2 fL (7.4-10.4); Monocytes # 0.6 10^3/uL (0.2-0.9); Monocytes % 7.4 %; Neutrophils # 5.73 10^3/uL (1.8-7.7); Neutrophils % 69.7 %; Nucleated Red Blood Cells % 0 %; Platelet Count 266 10^3/cmm (157-399); Red Blood Count 3.93 10^6/uL (3.85-5.65); Red Cell Distribution Width 13.1 % (12.1-15.1); White Blood Count 8.22 10^3/uL (3.29-11.43)
[2024-07-17 13:09] LABS: INR 0.89 (0.8-1.2)
[2024-07-17 13:10] LABS: Partial Thromboplastin Time 25.7 SECONDS (23.9-36.7)
[2024-07-17 13:14] LABS: Alanine Aminotransferase 15 U/L (0-33); Albumin Level 3.9 g/dL (3.5-5.2); Alkaline Phosphatase 117 U/L (35-105); Anion Gap 13.3 (5-19); Aspartate Amino Transferase 19 U/L (0-32); Blood Urea Nitrogen 16 mg/dL (6-20); Calcium 8.8 mg/dL (8.5-10.5); Carbon Dioxide 25 mmol/L (22-29); Chloride 105 mmol/L (98-107); Creatinine Clr Calc Pharmacy 78.4514; Globulin 3.1 g/dL (1.3-4.6); Glomerular Filtration Rate 65.5 mL/min (90-130); Glucose 90 mg/dL (65-115); Osmolality Calculated 289 mOsm/kg (285-295); Potassium 4.3 mmol/L (3.5-5.1); Sodium 139 mmol/L (136-145); Total Bilirubin 0.2 mg/dL (0.15-1.2)
[2024-07-17 14:38] LABS: Add Urine Microscopic? NO
[2024-07-17 14:43] LABS: Bilirubin Urine Negative (Negative); Blood Urine Negative (Negative); Glucose Urine UA Negative (Normal); Ketones Urine Negative (Negative); Leukocyte Esterase Urine 2+ (Negative); Nitrate Urine Negative (Negative); Protein Urine Negative (Negative); Specific Gravity, Urine 1.009 (1.005-1.030); Urine Appearance Clear (CLEAR); Urine Color Yellow (Yellow); pH Urine 5.5 (5-7)
[2024-07-17 14:48] LABS: Bacteria Urine 1+ /hpf; Hyaline Casts Urine 0-4 /lpf; RBC Urine 0-2 /hpf (0-2); WBC Urine 21-50 /hpf (0-5)
[2024-07-17 14:49] LABS: Add Urine Culture? Yes
[2024-07-17 14:50] LABS: Amphetamines Screen Urine Negative (Negative); Barbiturates Screen Urine Negative (Negative); Benzodiazepines Screen Urine Positive (Negative); Cocaine Screen Urine Negative (Negative); Opiate Screen Urine Negative (Negative); PCP Screen Urine Negative (Negative); THC Screen Urine Negative (Negative)
[2024-07-17 14:51] LABS: Charge for UA Resulting for Rev
[2024-07-17 17:11] LABS: Glucose Point of Care 90 mg/dL (70-110)
== END 2024-07-17 16:37 | disposition home or self-care (01) ==
PROVIDERS: Emergency Provider Family Medicine
DX: H81.10 Benign paroxysmal vertigo, unspecified ear (principal); I10 Essential (primary) hypertension; E78.5 Hyperlipidemia, unspecified
CPT/HCPCS: 36415; 36416; 70450; 80053; 80306; 81003; 82962; 85025; 85610; 85730; 87086; 93005; 99284

== ENCOUNTER 2024-08-12 18:37 | Emergency (ER) | payer OTHER, SELFPAY ==
[2024-08-12 18:46] VITALS: BP 136/97; PULSE 91; RESP 16; TEMP 36.8; O2SAT 95; BMI 33.5
--- NOTE | 2024-08-12 19:30 | ED_ITS ---
HPI - Skin/Abscess/Foreign Bdy General: Chief complaint: Skin/Abscess/Foreign Body Stated complaint: 8 days post op pulled alexa out accident Time Seen by Provider: 08/12/24 18:59 History of Present Illness: Patient recently had a nephrectomy at [facility] in [place] by Dr. Rinaldi. She has an incision midline abdomen with alexa present. When the dressing was removed it was noticeable to have a moderate amount of dried blood and she said when she got up today the dressing was filled with blood. She think she bent over or did something and pulled some of the alexa loose. Related Data Previous Rx's Medication Instructions Recorded tizanidine 2 mg tablet 2 mg PO TID PRN muscle spasticity 12/18/23 #270 tabs duloxetine 60 mg capsule,delayed 60 mg PO DAILY #90 caps 03/16/24 release cyclobenzaprine 5 mg tablet 5 mg PO BEDTIME PRN muscle spasm 05/12/24 #10 tabs diclofenac sodium 50 mg 50 mg PO BID PRN pain #60 tabs 05/14/24 tablet,delayed release duloxetine 30 mg capsule,delayed 30 mg PO DAILY #90 caps 05/14/24 release (Cymbalta) ezetimibe 10 mg tablet 10 mg PO DAILY #30 tabs 06/09/24 omeprazole 40 mg capsule,delayed 40 mg PO DAILY #30 caps 06/09/24 release aspirin 81 mg tablet,delayed 81 mg PO DAILY #30 tabs 07/17/24 release meclizine 25 mg tablet 25 mg PO QID PRN dizziness #20 tabs 07/17/24 mupirocin 2 % topical ointment 1 applic topical BID #15 grams 07/19/24 lisinopril 20 mg tablet 20 mg PO DAILY #90 tabs 07/26/24 Allergies Allergy/AdvReac Type Severity Reaction Status Date / Time No Known Allergies Allergy Verified 07/19/24 11:02 Review of Systems General: Reports: 10 or more systems reviewed and unremarkable except in HPI a nd below PFSH ED PFSH: Medical History History of kidney stones Stent x 2, lithotripsy x 2 Dyslipidemia Osteoarthritis involving multiple joints on both sides of body ELDER (generalized anxiety disorder) Major depressive disorder GERD (gastroesophageal reflux disease) Benign essential HTN Surgical History History of partial hysterectomy 2016 History of cholecystectomy History of delivery x 4 Family History Grandmother Diabetes mellitus, type 2 Heart disease Hypertension Mother Hypertension Stroke Social History Smoking and tobacco/nicotine status: never used tobacco/nicotine Alcohol intake: current Alcohol intake frequency: holidays/special occasions only Substance/Drug Use: never Adopted: No Household members: spouse and children Housing: House Marital status: Highest education level completed: Associate Degree: Occupational, Technical, Vocational Program service: No Current occupational status: employed Current occupational exposures/hazards: No Physical Exam Const: COMMON NORMALS: no acute distress, average body habitus, patient oriented x3, no limitations, healthy appearing, alert and well nourished HENMT: COMMON NORMALS: normocephalic, atraumatic, hearing grossly normal bilaterally, external ears normal, Normal external nose present and moist oral mucous membranes HEAD & SCALP: normocephalic and atraumatic NOSE: Normal external nose present EXTERNAL EAR: Yes external ears normal Neck/C-Spine: COMMON NORMALS: no JVD Chest: COMMONS NORMALS: normal inspection of the chest and normal palpation of entire chest wall Resp: COMMON NORMALS: normal respiratory effort, No retractions, No use of accessory muscles and clear to auscultation bilaterally AUSCULTATION: clear to auscultation bilaterally Cardio: COMMON NORMALS: no JVD, regular rate, regular rhythm, S1 normal heart sound present, S2 normal heart sound present, No gallops present (Cardio), No clicks present (Cardio), No murmurs present (Cardio) and No rub (Cardio) RATE: regular rate RHYTHM: regular rhythm HEART SOUNDS: S1 normal heart sound present and S2 normal heart sound present GI: COMMON NORMALS: Normal to inspection, nondistended, normoactive bowel sounds present (Midline abdominal incision noted to have a mild amount of dried blood along), Soft to palpation, non-tender, No hepatosplenomegaly present and no masses PALPATION: Yes Soft to palpation and Yes No hepatosplenomegaly present Neuro: COMMON NORMALS: patient oriented x3 SENSORIUM/ORIENTATION: Yes alert Course Vital Signs: Vital signs: Vital Signs Temperature 98.2 F 08/12/24 18:46 Pulse Rate 91 08/12/24 18:46 Respiratory Rate 16 08/12/24 18:46 Blood Pressure 136/97 08/12/24 18:46 Pulse Oximetry 95 08/12/24 18:46 Oxygen Delivery Me thod Room Air 08/12/24 18:46 MDM - Skin/Abscess/Foreign Bdy Medicial Decision Making Patient had minimal amount of bleeding over her wound with alexa. Is cleaned by nursing and reexamined appears to be fine. Patient was given 1 g of Tylenol while here. Patient can continue her hydrocodone at home for pain and follow-up with her surgeon as needed. Medical Records I reviewed the patient's medical records. Lab Data I reviewed the patient's lab results. No radiology studies performed this visit Discharge Plan Discharge Patient Disposition: Home Clinical Impression: Encounter for post surgical wound check Condition: Stable Prescriptions: No Action mupirocin 2 % ointment 1 applic topical BID Qty: 15 0RF tizanidine 2 mg tablet 2 mg PO TID PRN (Reason: muscle spasticity) Qty: 270 0RF duloxetine 60 mg capsule,delayed release(DR/EC) 60 mg PO DAILY Qty: 90 0RF Rx Instructions: ALONG WITH 360MG TO=90MG TOTAL duloxetine [Cymbalta] 30 mg capsule,delayed release(DR/EC) 30 mg PO DAILY Qty: 90 0RF Rx Instructions: ALONG WITH 60MG TO=90MG TOTAL diclofenac sodium 50 mg tablet,delayed release (DR/EC) 50 mg PO BID PRN (Reason: pain) Qty: 60 0RF ezetimibe 10 mg tablet 10 mg PO DAILY Qty: 30 2RF omeprazole 40 mg capsule,delayed release(DR/EC) 40 mg PO DAILY Qty: 30 6RF lisinopril 20 mg tablet 20 mg PO DAILY Qty: 90 0RF cyclobenzaprine 5 mg tablet 5 mg PO BEDTIME PRN (Reason: muscle spasm) Qty: 10 0RF aspirin 81 mg tablet,delayed release (DR/EC) 81 mg PO DAILY Qty: 30 0RF meclizine 25 mg tablet 25 mg PO QID PRN (Reason: dizziness) Qty: 20 0RF Discharge Orders: Discharge ED (Routine); Ordered 08/12/24 Ordered By: Grant Mendoza Referrals: Elva Draper NP [Primary Care Provider] - Patient Instructions: Postoperative Bleeding (ED) Activity Restrictions/Additional Instructions: Your incision look good there is a minimal amount of dried blood around the area. Please keep it clean and dry change dressings as needed. Please follow- up with your family practice physician and/or surgeon within next 7 days for further evaluation and treatment. If the bleeding continues or increases please feel free to return to the ER. Coding Level of Care Code ED Palm Gatherer for Bailey Morales
[2024-08-12 19:57] VITALS: BP 141/102; PULSE 80; RESP 16; O2SAT 97
[2024-08-12] MEDS: acetaminophen 500 mg Tablet 1000 MG PO (20:01)
[2024-08-12 20:17] VITALS: BP 152/93; PULSE 76; RESP 16; O2SAT 95
[2024-08-12 20:35] VITALS: BP 152/93; PULSE 78; RESP 16; O2SAT 95
== END 2024-08-12 20:37 | disposition home or self-care (01) ==
PROVIDERS: Emergency Provider Emergency Medicine
DX: Z48.816 Encounter for surgical aftercare following surgery on the genitourinary system (principal); I10 Essential (primary) hypertension
CPT/HCPCS: 99283

== ENCOUNTER → 2024-12-09 09:20 | Outpatient (BNVA) | payer OTHER, SELFPAY | PROVIDERS: Visit Provider Psychiatry & Neurology Psychiatry | DX: F41.1 Generalized anxiety disorder (principal) | CPT/HCPCS: 80061; 83036 ==

== ENCOUNTER 2025-01-16 12:09 | Inpatient (IN) | payer SELFPAY ==
[2024-12-13 09:51] VITALS: BP 130/87; BMI 36.8
[2025-01-16] VITALS (13 sets, daily range): BP systolic 101–139; BP diastolic 51–83; PULSE 75–116; RESP 13–22; TEMP 36.4–36.7; O2SAT 95–100; BMI 35.6
--- NOTE | 2025-01-16 12:45 | ECG_ITS ---
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 Measurements Intervals [place] Rate: 102 P: 26 MA: 154 QRS: 1 QRSD: 89 T: 54 QT: 308 QTc: 402 Interpretive Statements SINUS TACHYCARDIA POSSIBLE ANTERIOR MYOCARDIAL INFARCTION , PROBABLY OLD [30 ms Q WAVE IN V3/V4, OR R < 0.2 mV IN V4] ABNORMAL RHYTHM ECG Compared to ECG 07/17/2024 12:26:43 Myocardial infarct finding now present Sinus rhythm no longer present Electronically Signed On 01-16-2025 21:13:13 CDT by Iain Garcia M.D. [id number]
--- NOTE | 2025-01-16 12:45 | XRR_ITS ---
PROCEDURE INFORMATION: Exam: XR Chest Exam date and time: 01/16/2025 1:07 PM Age: 54 years old Clinical indication: Chest pressure; PT states she is currently being treated with bactrim for a UTI. PT states she started to become shaky and feeling short of breath starting yesterday. PT states she feels a burning in her chest and a pain across the back of her shoulders. PT also states she is feeling weak and has been diaphoretic. ; Additional info: Chest pain TECHNIQUE: Imaging protocol: Radiologic exam of the chest. Views: 1 view. COMPARISON: CT abdomen pelvis con [id number] 05/12/2024 9:54 AM FINDINGS: Lungs: Unremarkable. No consolidation. Pleural spaces: Unremarkable. No pleural effusion. No pneumothorax. Heart/Mediastinum: Unremarkable. No cardiomegaly. Bones/joints: Unremarkable. XR/XR chest 1V portable [id number] IMPRESSION: No acute cardiopulmonary abnormality.
--- NOTE | 2025-01-16 12:52 | W.ED.WEAKNES ---
HPI - Weakness General: Chief complaint: Weakness Stated complaint: high hr/shakiness/sob Time Seen by Provider: 01/16/25 12:42 History of Present Illness: 54-year-old female with history of hyperlipidemia, hypertension, GERD and a unilateral kidney secondary to left-sided nephrectomy secondary to renal cell carcinoma who presents to the emergency room with flank pain, chest pain, dysuria. She says she feels weak and lightheaded. She has had some pain in her back. She is also having some right sided flank pain. She was diagnosed 3 days ago with a urinary tract infection by her primary care provider and started on Bactrim. She has been taking this. She still has increased frequency but less dysuria. She said she had some left back pain and some left chest pain. Review of Systems Narrative: Constitutional symptoms: Negative except as documented in HPI. Skin symptoms: Negative except as documented in HPI. Eye symptoms: Negative except as documented in HPI. ENMT symptoms: Negative except as documented in HPI. Respiratory symptoms: Negative except as documented in HPI. Cardiovascular symptoms: Negative except as documented in HPI. Gastrointestinal symptoms: Negative except as documented in HPI. Genitourinary symptoms: Negative except as documented in HPI. Musculoskeletal symptoms: Negative except as documented in HPI. Neurologic symptoms: Negative except as documented in HPI. Psychiatric symptoms: Negative except as documented in HPI. Endocrine symptoms: Negative except as documented in HPI. [facility] ED PFSH: Medical History (Updated 01/16/25 @ 14:54 by Kathy Castano MD) Psychiatric care History of kidney stones Stent x 2, lithotripsy x 2 Dyslipidemia Osteoarthritis involving multiple joints on both sides of body ELDER (generalized anxiety disorder) Major depressive disorder GERD (gastroesophageal reflux disease) Benign essential HTN Surgical History (Updated 01/16/25 @ 14:54 by Kathy Castano MD) History of partial hysterectomy 2016 History of cholecystectomy History of delivery x 4 Family History Grandmother Diabetes mellitus, type 2 Heart disease Hypertension Mother Hypertension Stroke Social History Smoking and tobacco/nicotine status: never used tobacco/nicotine Alcohol intake: current Alcohol intake frequency: holidays/special occasions only Substance/Drug Use: never Adopted: No Household members: spouse and children Housing: House Marital status: Highest education level completed: Associate Degree: Occupational, Technical, Vocational Program service: No Current occupational status: employed Current occupational exposures/hazards: No Physical Exam Narrative: EXAM NARRATIVE: General: Alert, no acute distress. Skin: Warm, dry. Head: Normocephalic, atraumatic. Neck: Supple, trachea midline. Eye: Extraocular movements are intact. Ears, nose, mouth and throat: Tacky oral mucosa Cardiovascular: Regular, Normal peripheral perfusion. Respiratory: Lungs are clear to auscultation, respirations are non-labored, breath sounds are equal, Symmetrical chest wall expansion. Gastrointestinal: Soft, Nontender, Non distended Musculoskeletal: Normal ROM, no deformity. Neurological: Alert and oriented, No focal neurological deficit observed. Psychiatric: Cooperative, appropriate mood & affect. Course Vital Signs: Vital signs: Vital Signs Temperature 98.1 F 01/16/25 12:25 Pulse Rate 82 01/16/25 15:00 Respiratory Rate 18 01/16/25 15:00 Blood Pressure 124/83 01/16/25 15:00 Pulse Oximetry 99 01/16/25 15:00 Oxygen Delivery Me thod Room Air 01/16/25 12:25 MDM - Weakness Medical Decision Making Medical decision making: Differential diagnosis for patient presenting with generalized weakness including but not limited to and based on the above HPI, review of systems and physical exam: Sepsis. Dehydration. Renal failure. Electrolyte abnormalities. Anemia. Congestive heart failure. Hypotension. Coronary syndrome. Hepatitis. Cirrhosis. Infections such as pneumonia, urinary tract infection, [place] bourne illness, Cellulitis, Viral infections including influenza and Covid-19. Workup: labwork and lab/exam driven imaging ordered to evaluate, rule in and rule out above pathologies. EKG: Time 1215. Rate 102. Sinus tachycardia. nonspecific ST changes, no ectopy, normal MI & QRS intervals, This was reviewed and interpreted by myself the ER physician at 1220 Chest x-ray: No acute process. No infiltrate. No pneumothorax. This was reviewed and interpreted by myself the emergency room physician. I also reviewed the radiology report. Lab Review: Laboratory results were reviewed and interpreted by myself the emergency room physician. No leukocytosis. No anemia. Patient does have acute renal insufficiency with a BUN/creatinine of 18 and 2.1. Her baseline is under 1. Urine is negative for infection but I am treating as she has only been partially treated with her previous course of Bactrim. I am concerned the Bactrim may have caused her renal insufficiency. Also since he is complaining of right flank pain I am using cefepime as she might have pyelonephritis in her unilateral kidney. I reviewed the patient's medical record. Reexamination: Patient remained stable. No increased work of breathing. No altered mental status. No focal motor deficits. Consultation: I spoke with Dr. Wall who is on-call for the hospitalist service who agrees to admission Assessment and plan: Acute renal insufficiency Urinary tract infection Unilateral kidney History of nephrectomy -I discussed the patient with the hospitalist on-call who is admitting the patient. - Discussed findings and plan with patient. Answered any questions. - All laboratory values were reviewed and interpreted personally by myself, the ER physician - All imaging was reviewed and interpreted personally by myself, the ER physician. - Evaluation and treatment of this problem were appropriate in the emergency setting Lab Data 01/16/25 12:53 01/16/25 12:53 Radiology Impressions Chest X-Ray 01/16/25 12:45 IMPRESSION: No acute cardiopulmonary abnormality. Abdomen/Pelvis CT 01/16/25 13:45 IMPRESSION: 1. Postsurgical changes from left-sided nephrectomy. The right kidney appears unremarkable. No evidence of hydroureteronephrosis or obstructing ureteral calculus. No evidence of nephrolithiasis. 2. The urinary bladder is underdistended but is otherwise unremarkable. 3. Colonic diverticulosis without definitive CT evidence to suggest acute diverticulitis. 4. Hepatic steatosis. 5. Status post cholecystectomy. 6. Other findings as detailed in the body of the report. Laboratory Results WBC 7.77 10^3/uL (3.29-11.43) 01/16/25 12:53 RBC 4.44 10^6/uL (3.85-5.65) 01/16/25 12:53 Hgb 13.30 g/dL (11.27-16.99) 01/16/25 12:53 Hct 41.5 % (36-47) 01/16/25 12:53 MCV 93.5 fl (85-98) 01/16/25 12:53 MCH 30.0 pg (27-33) 01/16/25 12:53 MCHC 32.0 g/dL (30-55) 01/16/25 12:53 RDW 13.2 % (12.1-15.1) 01/16/25 12:53 Plt Count 355 10^3/cmm (157-399) 01/16/25 12:53 MPV 9.8 fL (7.4-10.4) 01/16/25 12:53 Neut % (Auto) 65.5 % 01/16/25 12:53 Lymph % (Auto) 22.5 % 01/16/25 12:53 [place] % (Auto) 9.9 % 01/16/25 12:53 Eos % (Auto) 0.5 % 01/16/25 12:53 Baso % (Auto) 1.2 % 01/16/25 12:53 Neut # (Auto) 5.09 10^3/uL (1.8-7.7) 01/16/25 12:53 Lymph # (Auto) 1.8 10^3/uL (0.8-4.8) 01/16/25 12:53 [place] # (Auto) 0.8 10^3/uL (0.2-0.9) 01/16/25 12:53 Eos # (Auto) 0.0 10^3/uL (0.0-0.8) 01/16/25 12:53 Baso # (Auto) 0.1 10^3/uL (0.0-0.1) 01/16/25 12:53 Nucleated RBC % (auto) 0 % 01/16/25 12:53 Nucleated RBCs # 0.0 /100WBC 01/16/25 12:53 Sodium 137 mmol/L (136-145) 01/16/25 12:53 Potassium 4.5 mmol/L (3.5-5.1) 01/16/25 12:53 Chloride 104 mmol/L (98-107) 01/16/25 12:53 Carbon Dioxide 19 mmol/L (22-29) L 01/16/25 12:53 Anion Gap 18.5 (5-19) 01/16/25 12:53 BUN 18 mg/dL (6-20) 01/16/25 12:53 Creatinine 2.1 mg/dL (0.5-0.9) H 01/16/25 12:53 GFR Calculation 24.5 mL/min (90-130) L 01/16/25 12:53 Glucose 97 mg/dL (65-115) 01/16/25 12:53 Calculated Osmolality 286 mOsm/kg (285-295) 01/16/25 12:53 Lactic Acid 1.7 mmol/L (0.5-2.2) 01/16/25 12:53 Calcium 9.8 mg/dL (8.5-10.5) 01/16/25 12:53 Total Bilirubin 0.3 mg/dL (0.15-1.2) 01/16/25 12:53 AST 39 U/L (0-32) H 01/16/25 12:53 ALT 37 U/L (0-33) H 01/16/25 12:53 Alkaline Phosphatase 136 U/L (35-105) H 01/16/25 12:53 Troponin T Baseline 14 ng/L (0-10) H 01/16/25 12:53 C-Reactive Protein 7.8 mg/L (0.0-4.9) H 01/16/25 12:53 Total Protein 7.9 g/dL (6.6-8.7) 01/16/25 12:53 Albumin 4.7 g/dL (3.5-5.2) 01/16/25 12:53 Globulin 3.2 g/dL (1.3-4.6) 01/16/25 12:53 Procalcitonin 0.14 ng/mL (0-0.5) 01/16/25 12:53 Urine Color Yellow (Yellow) 01/16/25 14: Urine Appearance Cloudy (CLEAR) A 01/16/25 14: Urine pH 5 (5-7) 01/16/25 14:29 Ur Specific [place] 1.025 (1.005-1.030) 01/16/25 14: Urine Protein Trace (Negative) 01/16/25 14: Urine Glucose (UA) Norm (Normal) 01/16/25 14: Urine Ketones Negative (Negative) 01/16/25 14: Urine Blood Neg (Negative) 01/16/25 14: Urine Nitrate Negative (Negative) 01/16/25 14: Urine Bilirubin 1+ (Negative) H 01/16/25 14:29 Urine Urobilinogen 4 mg/dL (Negative) H 01/16/25 14:29 Ur Leukocyte Esterase Trace (Negative) H 01/16/25 14:29 Urine RBC 0-2 /hpf (0-2) 01/16/25 14:29 Urine WBC 0-5 /hpf (0-5) 01/16/25 14:29 Ur Squamous Epith Cells 0-5 /hpf (0-5) 01/16/25 14:29 Calcium Oxalate Crystal 10-15 /hpf H 01/16/25 14:29 Amorphous Sediment Not Reportable 01/16/25 14:29 Urine Bacteria None seen /hpf (NONE) 01/16/25 14:29 Hyaline Casts 2.05 /lpf 01/16/25 14:29 Coarse Granular Casts 0-4 /lpf H 01/16/25 14:29 Influenza A (PCR) Negative (Negative) 01/16/25 13:03 Influenza Type B (PCR) Negative (Negative) 01/16/25 13:03 RSV (PCR) Negative (Negative) 01/16/25 13:03 SARS-CoV-2 (PCR) Negative (Negative) 01/16/25 13:03 All radiology interpretation(s) finalized by discharge Discharge Plan Discharge Patient Disposition: Admitted As Inpatient Admit Provider: Lisa Wall Clinical Impression: Acute on chronic renal insufficiency, Urinary tract infection, History of left nephrectomy Condition: Stable Coding Level of Care Code 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
[2025-01-16 13:09] LABS: Basophils # 0.1 10^3/uL (0.0-0.1); Basophils % 1.2 %; Eosinophils % 0.5 %; Hematocrit 41.5 % (36-47); Lymphocytes # 1.8 10^3/uL (0.8-4.8); Lymphocytes % 22.5 %; Mean Corpuscular Volume 93.5 fl (85-98); Mean Platelet Volume 9.8 fL (7.4-10.4); Monocytes # 0.8 10^3/uL (0.2-0.9); Monocytes % 9.9 %; Neutrophils # 5.09 10^3/uL (1.8-7.7); Neutrophils % 65.5 %; Nucleated Red Blood Cells % 0 %; Platelet Count 355 10^3/cmm (157-399); Red Blood Count 4.44 10^6/uL (3.85-5.65); Red Cell Distribution Width 13.2 % (12.1-15.1); White Blood Count 7.77 10^3/uL (3.29-11.43)
[2025-01-16] MEDS: sodium chloride 0.9% 1,000 ML 999 ML IV ×2 (13:16→14:57)
[2025-01-16 13:28] LABS: Lactic Sepsis W/Reflex 1.7 mmol/L (0.5-2.2); Troponin(5th) Baseline 14 ng/L (0-10)
[2025-01-16 13:29] LABS: Alanine Aminotransferase 37 U/L (0-33); Albumin Level 4.7 g/dL (3.5-5.2); Alkaline Phosphatase 136 U/L (35-105); Anion Gap 18.5 (5-19); Aspartate Amino Transferase 39 U/L (0-32); Blood Urea Nitrogen 18 mg/dL (6-20); C Reactive Protein 7.8 mg/L (0.0-4.9); Calcium 9.8 mg/dL (8.5-10.5); Carbon Dioxide 19 mmol/L (22-29); Chloride 104 mmol/L (98-107); Globulin 3.2 g/dL (1.3-4.6); Glomerular Filtration Rate 24.5 mL/min (90-130); Glucose 97 mg/dL (65-115); Osmolality Calculated 286 mOsm/kg (285-295); Potassium 4.5 mmol/L (3.5-5.1); Sodium 137 mmol/L (136-145); Total Bilirubin 0.3 mg/dL (0.15-1.2); Total Protein 7.9 g/dL (6.6-8.7)
[2025-01-16 13:36] LABS: Procalcitonin 0.14 ng/mL (0-0.5)
[2025-01-16 13:38] LABS: Creatinine Clr Calc Pharmacy 34.1128
--- NOTE | 2025-01-16 13:45 | CTR_ITS ---
PROCEDURE INFORMATION: Exam: CT Abdomen And Pelvis Without Contrast Exam date and time: 01/16/2025 1:59 PM Age: 54 years old Clinical indication: Other: Low back and kidney pain; Additional info: Renal failure, R/O obstructive uropathy, unilat kidney TECHNIQUE: Imaging protocol: Computed tomography of the abdomen and pelvis without contrast. Radiation optimization: All CT scans at this facility use at least one of these dose optimization techniques: automated exposure control; mA and/or kV adjustment per patient size (includes targeted exams where dose is matched to clinical indication); or iterative reconstruction. COMPARISON: CT abdomen pelvis con [id number] 05/12/2024 9:54 AM RADIATION DOSE METRICS: Total DLP (mGy-cm): 919.12 FINDINGS: Lungs: The lung bases are unremarkable. Liver: Subcentimeter coarse calcification within the inferior right hepatic lobe. Gallbladder and biliary ducts: Status post cholecystectomy. Pancreas: Normal. No ductal dilation. Spleen: Normal. No splenomegaly. Adrenal glands: Normal. No mass. Kidneys and ureters: Status post left nephrectomy. Extrarenal pelvis involving the right kidney. No evidence hydronephrosis or obstructing ureteral calculus. Stomach and bowel: Colonic diverticulosis without evidence to suggest acute diverticulitis. Appendix: The appendix is partially air-filled and unremarkable. Intraperitoneal space: Unremarkable. No free air. No significant fluid collection. Vasculature: Mild aortoiliac atherosclerosis. Lymph nodes: Unremarkable. No enlarged lymph nodes. Urinary bladder: Unremarkable as visualized. Reproductive: Status post hysterectomy. Bones/joints: [id number] multilevel degenerative disease of the thoracolumbar spine. Soft tissues: Postsurgical changes along the anterior abdominal wall. CT/CT abdomen pelvis con [id number] IMPRESSION: 1. Postsurgical changes from left-sided nephrectomy. The right kidney appears unremarkable. No evidence of hydroureteronephrosis or obstructing ureteral calculus. No evidence of nephrolithiasis. 2. The urinary bladder is underdistended but is otherwise unremarkable. 3. Colonic diverticulosis without definitive CT evidence to suggest acute diverticulitis. 4. Hepatic steatosis. 5. Status post cholecystectomy. 6. Other findings as detailed in the body of the report.
[2025-01-16 14:09] LABS: Influenza A NEGATIVE (Negative); Influenza B NEGATIVE (Negative); Respiratory Syncytial Virus Ce NEGATIVE (Negative); SARS-CoV-2 PCR NEGATIVE (Negative)
--- NOTE | 2025-01-16 14:45 | ECG_ITS ---
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 Measurements Intervals [place] Rate: 83 P: 44 PA: 172 QRS: 3 QRSD: 86 T: 34 QT: 353 QTc: 415 Interpretive Statements SINUS RHYTHM LOW QRS VOLTAGE IN PRECORDIAL LEADS [QRS DEFLECTION < 1.0 mV IN CHEST LEADS] ST DEVIATION AND MODERATE T-WAVE ABNORMALITY, CONSIDER ANTEROLATERAL ISCHEMIA [-0.1+ mV T-WAVE IN V3-V6] Compared to ECG 01/16/2025 12:15:20 Low QRS voltage now present T-wave abnormality now present Possible ischemia now present Sinus tachycardia no longer present Myocardial infarct finding no longer present Electronically Signed On 01-16-2025 21:19:48 CDT by Iain Garcia M.D. [email or web address] [id number]
[2025-01-16 14:50] LABS: Bilirubin Urine 1+ (Negative); Blood Urine Neg (Negative); Glucose Urine UA Norm (Normal); Ketones Urine Negative (Negative); Leukocyte Esterase Urine Trace (Negative); Nitrate Urine Negative (Negative); Protein Urine Trace (Negative); Specific Gravity, Urine 1.025 (1.005-1.030); Urine Appearance Cloudy (CLEAR); Urine Color Yellow (Yellow); Urobilinogen Urine 4 mg/dL (Negative); pH Urine 5 (5-7)
[2025-01-16 14:53] LABS: Bacteria Urine None Seen /hpf; Hyaline Casts Urine 2.05 /lpf; RBC Urine 0-2 /hpf (0-2); Squamous Epithelial Cell Urine 0-5 /hpf (0-5); WBC Urine 0-5 /hpf (0-5)
[2025-01-16] MEDS: cefepime 2,000 mg SDV 2000 MG IVP (14:57)
--- NOTE | 2025-01-16 15:07 | PM.HP ---
Providers/Chief Complaint Primary Care Provider: Elva Draper NP Chief Complaint: high hr/shakiness/sob History of Present Illness Bruce Ballesteros is a 54 year old female With past medical history hyperlipidemia hypertension GERD, solitary kidney secondary to left-sided nephrectomy due to renal cell cancer presented to the ER with flank pain and dysuria. She has been feeling weak and lightheaded for last few days. She also complains of some pain in her back. 3 days ago she was diagnosed with a UTI and went to see her primary care doctor who gave her a course of Bactrim. He says she has been taking this however still having symptoms of urinary frequency however dysuria seems to be improving. Denies chest pain at this time. Medications/Allergies Home Medications ?Medication ?Instructions ?Recorded ?Confirmed ?Last Taken ?Type lisinopril 20 mg tablet 20 mg PO DAILY #90 tabs 10/20/24 01/16/25 Unknown Rx bupropion HCl 150 mg 24 hr tablet, 150 mg PO QAM #30 tabs 12/31/24 01/16/25 Unknown Rx extended release (Wellbutrin XL) duloxetine 60 mg capsule,delayed 120 mg (2 x 60 mg) PO DAILY #30 12/31/24 01/16/25 Unknown Rx release caps ezetimibe 10 mg tablet 10 mg PO DAILY 01/16/25 01/16/25 01/16/25 08:00 History sulfamethoxazole 800 1 tab PO BID 01/16/25 01/16/25 Unknown History mg-trimethoprim 160 mg tablet Allergies Allergy/AdvReac Type Severity Reaction Status Date / Time No Known Allergies Allergy Verified 12/31/24 13:19 PFSH Acute PFSH: Medical History (Updated 01/16/25 @ 16:22 by Lisa Wall MD) Psychiatric care History of kidney stones Stent x 2, lithotripsy x 2 Dyslipidemia Osteoarthritis involving multiple joints on both sides of body ELDER (generalized anxiety disorder) Major depressive disorder GERD (gastroesophageal reflux disease) Benign essential HTN Surgical History (Updated 01/16/25 @ 14:54 by Kathy Castano MD) History of partial hysterectomy 2016 History of cholecystectomy History of delivery x 4 Family History Grandmother Diabetes mellitus, type 2 Heart disease Hypertension Mother Hypertension Stroke Social History Smoking and tobacco/nicotine status: never used tobacco/nicotine Alcohol intake: current Alcohol intake frequency: holidays/special occasions only Substance/Drug Use: never Adopted: No Household members: spouse and children Housing: House Marital status: Highest education level completed: Associate Degree: Occupational, Technical, Vocational Program service: No Current occupational status: employed Current occupational exposures/hazards: No Vitals/I&O/Wt Last Vital Signs Temp 98.1 F 01/16/25 12:25 Pulse 78 01/16/25 14:15 Resp 22 H 01/16/25 14:15 BP 113/74 01/16/25 13:30 Pulse Ox 99 01/16/25 14:15 O2 Del Method Room Air 01/16/25 12:25 01/16/25 01/16/25 01/16/25 06:59 14:59 22:59 Intake Total 1000 / 1000 Balance 1000 / 1000 Weight last 48 hrs Weight 94.347 kg Physical Exam Narrative: General: Alert oriented x3, patient seen laying in bed appearing comfortable at this time. HEENT: Normocephalic, atraumatic, EOMI, breathing room air. Cardio: Regular rate rhythm, normal S1-S2, Respiratory: Good bilateral air entry, no wheezes no rhonchi appreciated GI: Abdomen soft, nontender, nondistended, bowel sounds +, no flank tenderness at this time. Extremities: No edema bilateral lower extremities Data 01/16/25 12:53 01/16/25 12:53 Micro: Microbiology 01/16/25 13:03 Blood Culture - Preliminary Blood SPECIMEN COLLECTED 01/16/25 12:53 Blood Culture - Preliminary Blood SPECIMEN COLLECTED A&P Assessment and plan (1) MELYSSA (acute kidney injury): (2) Benign essential HTN: (3) Acute on chronic renal insufficiency: (4) Urinary tract infection: (5) Dysuria: (6) History of left nephrectomy: (7) Dyslipidemia: Plan #MELYSSA, most likely medication induced #Solitary kidney #History of renal cell carcinoma #Elevated liver enzymes #UTI -Recently diagnosed with UTI at primary care doctor. Patient still symptomatic. Has been taking Bactrim at home. Most likely this is medication induced MELYSSA. ? We will place patient on ceftriaxone IV at this time. ? Avoid nephrotoxic agents. ? I will hold lisinopril from home. Will switch to hydralazine if needed for high blood pressure. ? Check urine culture, blood culture ? Placed on IV fluids. Will start normal saline at 100 cc/h for IV fluid hydration ? Check labs daily BMP, CBC ? Urinalysis shows 1+ bilirubin, trace leukocyte esterase. ? Troponins at 2 hours delta negative. C-reactive protein 7.8. ? Liver enzymes slightly elevated. CT chest abdomen pelvis shows subcentimeter coarse calcification within inferior right hepatic lobe. ? Vitals are stable at this time Full code DVT prophylaxis: Heparin SQ twice daily PDMP PDMP Reviewed: Not Reviewed Attestations Medical Necessity Statement*: Cross greater than 2 midnight stay for MELYSSA Diagnoses MELYSSA (acute kidney injury) N17.9 Benign essential HTN I10 Acute on chronic renal insufficiency N28.9; N18.9 Urinary tract infection N39.0 Dysuria R30.0 History of left nephrectomy Z90.5 Dyslipidemia E78.5
[2025-01-16 15:21] LABS: Coarse Granular Casts Urine 0-4 /lpf
[2025-01-16 15:40] LABS: Troponin 5 2HR 10.86 ng/L (0-10)
[2025-01-16 15:46] LABS: Troponin 5 2HR Delta -3.14 ABS# (0-10)
[2025-01-16] MEDS: cefTRIAXone 1,000 mg SDV 1000 MG IVP (17:08)
[2025-01-16] MEDS: heparin 5,000 unit/mL INJ 1 mL 5000 UNIT SUBCUT (17:08)
[2025-01-16] MEDS: sodium chloride 0.9% 1,000 ML 125 ML IV (17:08)
--- NOTE | 2025-01-16 18:45 | ECG_ITS ---
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 Measurements Intervals [place] Rate: 81 P: 41 MD: 168 QRS: 13 QRSD: 94 T: 20 QT: 386 QTc: 450 Interpretive Statements SINUS RHYTHM LOW QRS VOLTAGE IN PRECORDIAL LEADS [QRS DEFLECTION < 1.0 mV IN CHEST LEADS] NONSPECIFIC T-WAVE ABNORMALITY Compared to ECG 01/16/2025 14:33:44 Possible ischemia no longer present T-wave abnormality still present Electronically Signed On 01-16-2025 21:18:15 CDT by Iain Garcia M.D. [id number]
[2025-01-16 19:23] LABS: Troponin 5 6HR 13.35 ng/L (0-10)
[2025-01-16 19:25] LABS: Troponin 5 6HR Delta -0.65 ng/L (0-12)
[2025-01-17] MEDS: sodium chloride 0.9% 1,000 ML 125 ML IV ×2 (00:45→08:59)
[2025-01-17 00:46] VITALS: BP 95/52; PULSE 80; RESP 16; TEMP 36.6; O2SAT 96
[2025-01-17 03:13] LABS: Basophils # 0.1 10^3/uL (0.0-0.1); Basophils % 1.1 %; Eosinophils % 0.8 %; Hematocrit 35.7 % (36-47); Lymphocytes # 1.7 10^3/uL (0.8-4.8); Lymphocytes % 32.8 %; Mean Corpuscular Hemoglobin 29.8 pg (27-33); Mean Corpuscular Volume 99.4 fl (85-98); Mean Platelet Volume 10.5 fL (7.4-10.4); Monocytes # 0.5 10^3/uL (0.2-0.9); Monocytes % 8.9 %; Neutrophils # 2.96 10^3/uL (1.8-7.7); Neutrophils % 56.2 %; Nucleated Red Blood Cells % 0 %; Platelet Count 182 10^3/cmm (157-399); Red Blood Count 3.59 10^6/uL (3.85-5.65); Red Cell Distribution Width 13.3 % (12.1-15.1); White Blood Count 5.27 10^3/uL (3.29-11.43)
[2025-01-17 03:42] LABS: Alanine Aminotransferase 25 U/L (0-33); Albumin Level 3.6 g/dL (3.5-5.2); Alkaline Phosphatase 103 U/L (35-105); Blood Urea Nitrogen 18 mg/dL (6-20); Calcium 8.8 mg/dL (8.5-10.5); Carbon Dioxide 14 mmol/L (22-29); Chloride 111 mmol/L (98-107); Creatinine Clr Calc Pharmacy 36.4172; Globulin 2.9 g/dL (1.3-4.6); Glucose 92 mg/dL (65-115); Magnesium 2.1 mg/dL (1.7-2.3); Osmolality Calculated 288 mOsm/kg (285-295); Sodium 138 mmol/L (136-145); Total Bilirubin 0.3 mg/dL (0.15-1.2); Total Protein 6.5 g/dL (6.6-8.7)
[2025-01-17 03:43] LABS: Anion Gap 17.7 (5-19); Aspartate Amino Transferase 29 U/L (0-32); Potassium 4.7 mmol/L (3.5-5.1)
[2025-01-17] MEDS: heparin 5,000 unit/mL INJ 1 mL 5000 UNIT SUBCUT ×2 (03:56→17:05)
[2025-01-17 06:07] VITALS: BP 106/67; PULSE 70; RESP 15; TEMP 36.7; O2SAT 99; BMI 36.7
[2025-01-17 07:14] VITALS: BP 122/79; PULSE 75; RESP 17; TEMP 36.8; O2SAT 98
--- NOTE | 2025-01-17 11:03 | PC.CHAP ---
Pastoral Care Encounter/Spiritual Assessment Type of Contact [] Declined network pricing consultant visit [] Patient/Family/Request visit [] Outpatient visit [] Follow-up visit [] Physician referral [] Code/Alert [x] Routine visit [] Staff referral [] Actively dying [x] Patient sleeping [] Family support [] [] Out of room [] Palliative care [] [] Receiving care in room [] Pre-surgical visit [] Trauma [] Long length of stay [] ICU visit [] Other: Relational/Emotional Strength [] Patient feels connected with others/family/visitors/staff [] Distress [] Loneliness/isolation [] Abandonment Spirituality of Patient [] Person of Sissy [] Attends Baptist of their Sissy [] Believes in Prayer [] Reads Bible or Gnosticism materials [] There are Spiritual issues to be addressed 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 Interventions [x] Prayer [] Active listening [] Non-anxious presence [] Spiritual/emotional support [] Crisis/trauma care [] Spiritual counseling [] Bereavement support [] Provided bereavement packet [] Provided Bible/devotional materials [] Provided toy/stuffed animal, coloring book to patient or family member [] Provided Communion [] Anointing/[place] [] Salvation [] Completed spiritual assessment [] Other: Impact on Illness or Injury [] Angry [] Fearful [] Anxious [] Often cries [] Exhaustion [] Unable to work [] Unable to attend lutheran [] Unable to walk/stand [] Unable to read [] Unable to drive [] Unable to eat/drink [] Unable to sleep [] Unable to be with family [] Patient intubated [] Other: Summary Time spent with patient
[2025-01-17 11:35] VITALS: BP 126/83; PULSE 71; RESP 17; TEMP 36.4; O2SAT 97
[2025-01-17 16:17] VITALS: BP 110/53; PULSE 73; RESP 19; TEMP 37.1; O2SAT 91
[2025-01-17] MEDS: cefTRIAXone 1,000 mg SDV 1000 MG IVP (17:05)
--- NOTE | 2025-01-17 18:02 | P.PN_ITS ---
Subjective 2 Subjective: Patient states she is starting to feel little bit better. Urine output 1100 cc charted overnight. Medications: Reviewed: Yes Vitals/I&O/Wt Last Vital Signs Temp 98.7 F 01/17/25 16:17 Pulse 73 01/17/25 16:17 Resp 19 H 01/17/25 16:17 BP 110/53 01/17/25 16:17 Pulse Ox 91 01/17/25 16:17 O2 Del Method Room Air 01/17/25 16:17 01/17/25 01/17/25 01/17/25 06:59 14:59 22:59 Intake Total 1252.083 / 3492.083 1720 / 1720 600 / 2320 Output Total 800 / 1100 Balance 452.083 / 2392.083 1720 / 1720 600 / 2320 Weight last 48 hrs Weight 97.069 kg Weight 97.296 kg Weight 94.347 kg Physical Exam 2 Narrative: General: No acute distress, AO x3 HEENT: PERRLA, pupils bilaterally equal and reactive, pallors not present Chest: Normal vesicular breath sounds, no added sounds, equal good air entry bilaterally CVS: S1-S2 regular, no murmurs, no tachycardia, no gallops, no rubs Abdomen: Soft, nontender, no organomegaly, bowel sounds present Neuro: No focal deficits, no facial deformity, AO x3, power 5/5 in all limbs Data 01/17/25 01:58 01/17/25 01:58 Micro: Microbiology 01/16/25 13:03 Blood Culture - Preliminary Blood NEGATIVE TO DATE 01/16/25 12:53 Blood Culture - Preliminary Blood NEGATIVE TO DATE A&P Assessment and plan (1) MELYSSA (acute kidney injury): (2) Benign essential HTN: (3) Acute on chronic renal insufficiency: (4) Urinary tract infection: (5) Dysuria: (6) History of left nephrectomy: (7) Dyslipidemia: Plan #MELYSSA, most likely medication induced #Solitary kidney #History of renal cell carcinoma #Elevated liver enzymes #UTI -Recently diagnosed with UTI at primary care doctor. Patient still symptomatic. Has been taking Bactrim at home. Most likely this is medication induced MELYSSA. ? We will place patient on ceftriaxone IV at this time. ? Avoid nephrotoxic agents. ? I will hold lisinopril from home. Will switch to hydralazine if needed for high blood pressure. ? Check urine culture, blood culture ? Placed on IV fluids. Will start normal saline at 100 cc/h for IV fluid hydration ? Check labs daily BMP, CBC ? Urinalysis shows 1+ bilirubin, trace leukocyte esterase. ? Troponins at 2 hours delta negative. C-reactive protein 7.8. ? Liver enzymes slightly elevated. CT chest abdomen pelvis shows subcentimeter coarse calcification within inferior right hepatic lobe. ? Vitals are stable at this time Full code DVT prophylaxis: Heparin SQ twice daily January 17, 2025 Creatinine at 2.0 today. Urine output 1100 cc overnight, not accurately charted today. LFTs improving today. Urine and blood cultures remain pending. Continue IV ceftriaxone empirically. Continue IV fluids, reduce to 100 cc an hour. Closely monitor creatinine and urine output over the next 24 hours. May be able to discharge if creatinine shows improving trend. PDMP PDMP Reviewed: Not Reviewed Attestations 2 Medical Necessity Statement*: Continued need for IV antibiotics, IV fluids, recheck creatinine Coding Level of Care Code Acute Code for Chg Fwd Diagnoses MELYSSA (acute kidney injury) N17.9 Benign essential HTN I10 Acute on chronic renal insufficiency N28.9; N18.9 Urinary tract infection N39.0 Dysuria R30.0 History of left nephrectomy Z90.5 Dyslipidemia E78.5
[2025-01-17] MEDS: acetaminophen 325 mg Tablet 650 MG PO (20:12)
[2025-01-17 20:39] VITALS: BP 118/68; PULSE 74; RESP 15; TEMP 36.6; O2SAT 99
[2025-01-17] MEDS: sodium chloride 0.9% 1,000 ML 100 ML IV (21:57)
[2025-01-18 00:44] VITALS: BP 120/67; PULSE 80; RESP 16; TEMP 36.7; O2SAT 95
[2025-01-18 05:04] VITALS: BP 134/79; PULSE 66; RESP 16; TEMP 37.1; O2SAT 96
[2025-01-18 05:20] LABS: Basophils # 0.1 10^3/uL (0.0-0.1); Basophils % 1.2 %; Eosinophils # 0.1 10^3/uL (0.0-0.8); Eosinophils % 1.2 %; Hematocrit 34.7 % (36-47); Lymphocytes # 1.4 10^3/uL (0.8-4.8); Lymphocytes % 29.1 %; Mean Corpuscular HGB Conc 30.5 g/dL (30-55); Mean Corpuscular Hemoglobin 30.5 pg (27-33); Mean Corpuscular Volume 99.7 fl (85-98); Monocytes # 0.5 10^3/uL (0.2-0.9); Monocytes % 9.2 %; Neutrophils % 59.1 %; Nucleated Red Blood Cells % 0 %; Platelet Count 213 10^3/cmm (157-399); Red Blood Count 3.48 10^6/uL (3.85-5.65); Red Cell Distribution Width 13.3 % (12.1-15.1); White Blood Count 4.91 10^3/uL (3.29-11.43)
[2025-01-18] MEDS: heparin 5,000 unit/mL INJ 1 mL 5000 UNIT SUBCUT (05:30)
[2025-01-18] MEDS: nystatin powder 15 gm Btl 1 APPLIC TOPICAL ×2 (05:30→08:36)
[2025-01-18] MEDS: buPROPion XL (24 HR) 150 mg Tablet PO (05:30)
[2025-01-18 05:35] LABS: Alanine Aminotransferase 21 U/L (0-33); Albumin Level 3.6 g/dL (3.5-5.2); Alkaline Phosphatase 103 U/L (35-105); Anion Gap 14.8 (5-19); Aspartate Amino Transferase 19 U/L (0-32); Blood Urea Nitrogen 15 mg/dL (6-20); Calcium 8.8 mg/dL (8.5-10.5); Carbon Dioxide 19 mmol/L (22-29); Chloride 112 mmol/L (98-107); Creatinine Clr Calc Pharmacy 45.4639; Globulin 2.7 g/dL (1.3-4.6); Glomerular Filtration Rate 33.6 mL/min (90-130); Glucose 98 mg/dL (65-115); Osmolality Calculated 293 mOsm/kg (285-295); Potassium 4.8 mmol/L (3.5-5.1); Sodium 141 mmol/L (136-145); Total Bilirubin 0.2 mg/dL (0.15-1.2); Total Protein 6.3 g/dL (6.6-8.7)
[2025-01-18 06:29] VITALS: BMI 36.7
[2025-01-18] MEDS: sodium chloride 0.9% 1,000 ML 100 ML IV (07:17)
[2025-01-18 08:00] VITALS: BP 110/68; PULSE 76; RESP 16; TEMP 36.6; O2SAT 98
--- NOTE | 2025-01-18 08:27 | PC.CHAP ---
Pastoral Care Encounter/Spiritual Assessment Type of Contact [] Declined presidential support specialist visit [] Patient/Family/Request visit [] Outpatient visit [] Follow-up visit [] Physician referral [] Code/Alert [x] Routine visit [] Staff referral [] Actively dying [] Patient sleeping [] Family support [] [] Out of room [] Palliative care [] [] Receiving care in room [] Pre-surgical visit [] Trauma [] Long length of stay [] ICU visit [] Other: Relational/Emotional Strength [x] Patient feels connected with others/family/visitors/staff [] Distress [] Loneliness/isolation [] Abandonment Spirituality of Patient [x] Person of Sissy [] Attends Mu-Ism of their Sissy [x] Believes in Prayer [] Reads Bible or Restorationist materials [] There are Spiritual issues to be addressed Locket Maker Interventions [x] Prayer [x] Active listening [] Non-anxious presence [x] Spiritual/emotional support [] Crisis/trauma care [] Spiritual counseling [] Bereavement support [] Provided bereavement packet [] Provided Bible/devotional materials [] Provided toy/stuffed animal, coloring book to patient or family member [] Provided Communion [] Anointing/[place] [] Salvation [x] Completed spiritual assessment [] Other: Impact on Illness or Injury [] Angry [] Fearful [] Anxious [] Often cries [] Exhaustion [] Unable to work [] Unable to attend advent [] Unable to walk/stand [] Unable to read [] Unable to drive [] Unable to eat/drink [] Unable to sleep [] Unable to be with family [] Patient intubated [] Other: Summary Time spent with patient 5 min
[2025-01-18] MEDS: duloxetine 60 mg Capsule 120 MG PO (08:36)
[2025-01-18] MEDS: ezetimibe 10 mg Tablet PO (08:36)
[2025-01-18 11:32] LABS: Glucose Point of Care 104 mg/dL (70-110)
--- NOTE | 2025-01-18 11:53 | PC.NURSE ---
Discharge instructions provided to pt and her family. No questions or concerns voiced at this time. Pt to private vehicle via wheelchair with all belongings
[2025-01-18 11:54] VITALS: BP 152/83; PULSE 72; RESP 17; TEMP 36.9; O2SAT 97
--- NOTE | 2025-01-18 15:32 | PM.DCS ---
Discharge Providers Date of Admission: 01/16/25 15:11 Date of Discharge: January 18, 2025 Attending Provider at Admission: Lisa Wall MD Attending Provider at Discharge: Narcisa Romero MD Primary Care Provider: Elva Draper NP Diagnoses at Discharge Discharge Diagnosis (1) MELYSSA (acute kidney injury): Status: Acute (2) Benign essential HTN: Status: Acute (3) Acute on chronic renal insufficiency: Status: Acute (4) Urinary tract infection: Status: Acute (5) Dysuria: Status: Acute (6) History of left nephrectomy: Status: Acute (7) Dyslipidemia: Status: Acute Reason for Visit Reason for Visit: high hr/shakiness/sob Brief History: Bruce Ballesteros is a 54 year old female With past medical history hyperlipidemia hypertension GERD, solitary kidney secondary to left-sided nephrectomy due to renal cell cancer presented to the ER with flank pain and dysuria. She has been feeling weak and lightheaded for last few days. She also complains of some pain in her back. 3 days ago she was diagnosed with a UTI and went to see her primary care doctor who gave her a course of Bactrim. He says she has been taking this however still having symptoms of urinary frequency. She was found to have acute kidney injury with creatinine at 2.1. She was admitted in view of solitary kidney with current MELYSSA. Suspect that this may have been triggered by recent Bactrim use. Patient has been on lisinopril for several years without any change in doses recently. Lisinopril was temporarily held. Patient received IV fluids, creatinine is currently improving at 1.6. Today her urine output was noted to be nearly 2700 cc. She is feeling clinically better. She remained hemodynamically stable and afebrile. Urine culture was taken which showed less than 5000 CFU of urogenital nai, however this is difficult to interpret given that she has recently been on Bactrim. She was treated with IV ceftriaxone in the hospital and then patient was transitioned to oral ciprofloxacin at the time of discharge. Lisinopril on hold for 1 week. She is instructed to follow-up with her primary care provider within the week, repeat a creatinine before resuming lisinopril again. She has been provided with a prescription for amlodipine 5 mg p.o. daily in the interim while lisinopril remains on hold. This documentation was created by dragon national sales representative software. Every effort was made to ensure accuracy of national sales representative. Any obvious errors or omissions should be clarified with the author of the document. Physical Exam Narrative: General: No acute distress, AO x3 HEENT: PERRLA, pupils bilaterally equal and reactive, pallors not present Chest: Normal vesicular breath sounds, no added sounds, equal good air entry bilaterally CVS: S1-S2 regular, no murmurs, no tachycardia, no gallops, no rubs Abdomen: Soft, nontender, no organomegaly, bowel sounds present Neuro: No focal deficits, no facial deformity, AO x3, power 5/5 in all limbs Discharge Data Studies Completed and Pending Completed Studies During Hospitalization Category Date Time Status CT abdomen pelvis wo con [id number] Stat Cat Scan 01/16/25 13:45 Completed XR chest 1V portable [id number] Stat Exams 01/16/25 12:45 Completed Pending at discharge Category Date Time Status Blood Culture Stat Lab 01/16/25 13:03 Results Urine Culture Stat Lab 01/16/25 17:30 Results Radiology Impressions Chest X-Ray 01/16/25 12:45 IMPRESSION: No acute cardiopulmonary abnormality. Abdomen/Pelvis CT 01/16/25 13:45 IMPRESSION: 1. Postsurgical changes from left-sided nephrectomy. The right kidney appears unremarkable. No evidence of hydroureteronephrosis or obstructing ureteral calculus. No evidence of nephrolithiasis. 2. The urinary bladder is underdistended but is otherwise unremarkable. 3. Colonic diverticulosis without definitive CT evidence to suggest acute diverticulitis. 4. Hepatic steatosis. 5. Status post cholecystectomy. 6. Other findings as detailed in the body of the report. Laboratory Results WBC 4.91 10^3/uL (3.29-11.43) 01/18/25 04:17 RBC 3.48 10^6/uL (3.85-5.65) L 01/18/25 04:17 Hgb 10.60 g/dL (11.27-16.99) L 01/18/25 04:17 Hct 34.7 % (36-47) L 01/18/25 04:17 MCV 99.7 fl (85-98) H 01/18/25 04:17 MCH 30.5 pg (27-33) 01/18/25 04:17 MCHC 30.5 g/dL (30-55) 01/18/25 04:17 RDW 13.3 % (12.1-15.1) 01/18/25 04:17 Plt Count 213 10^3/cmm (157-399) 01/18/25 04:17 MPV 10.0 fL (7.4-10.4) 01/18/25 04:17 Neut % (Auto) 59.1 % 01/18/25 04:17 Lymph % (Auto) 29.1 % 01/18/25 04:17 [place] % (Auto) 9.2 % 01/18/25 04:17 Eos % (Auto) 1.2 % 01/18/25 04:17 Baso % (Auto) 1.2 % 01/18/25 04:17 Neut # (Auto) 2.90 10^3/uL (1.8-7.7) 01/18/25 04:17 Lymph # (Auto) 1.4 10^3/uL (0.8-4.8) 01/18/25 04:17 [place] # (Auto) 0.5 10^3/uL (0.2-0.9) 01/18/25 04:17 Eos # (Auto) 0.1 10^3/uL (0.0-0.8) 01/18/25 04:17 Baso # (Auto) 0.1 10^3/uL (0.0-0.1) 01/18/25 04:17 Nucleated RBC % (auto) 0 % 01/18/25 04:17 Nucleated RBCs # 0.0 /100WBC 01/18/25 04:17 Sodium 141 mmol/L (136-145) 01/18/25 04:17 Potassium 4.8 mmol/L (3.5-5.1) 01/18/25 04:17 Chloride 112 mmol/L (98-107) H 01/18/25 04:17 Carbon Dioxide 19 mmol/L (22-29) L 01/18/25 04:17 Anion Gap 14.8 (5-19) 01/18/25 04:17 BUN 15 mg/dL (6-20) 01/18/25 04:17 Creatinine 1.6 mg/dL (0.5-0.9) H 01/18/25 04:17 GFR Calculation 33.6 mL/min (90-130) L 01/18/25 04:17 Glucose 98 mg/dL (65-115) 01/18/25 04:17 POC Glucose 104 mg/dL (70-110) 01/18/25 11:21 Calculated Osmolality 293 mOsm/kg (285-295) 01/18/25 04:17 Lactic Acid 1.7 mmol/L (0.5-2.2) 01/16/25 12:53 Calcium 8.8 mg/dL (8.5-10.5) 01/18/25 04:17 Magnesium 2.1 mg/dL (1.7-2.3) 01/17/25 01:58 Total Bilirubin 0.2 mg/dL (0.15-1.2) 01/18/25 04:17 AST 19 U/L (0-32) 01/18/25 04:17 ALT 21 U/L (0-33) 01/18/25 04:17 Alkaline Phosphatase 103 U/L (35-105) 01/18/25 04:17 Troponin T Baseline 14 ng/L (0-10) H 01/16/25 12:53 Troponin T 120 Minute 10.86 ng/L (0-10) H 01/16/25 15:14 Delta Troponin T -3.14 ABS# (0-10) L 01/16/25 15:14 Troponin T Hi Sens 6Hr 13.35 ng/L (0-10) H 01/16/25 18:54 Troponin T Hi Sens 6Hr Delta -0.65 ng/L (0-12) L 01/16/25 18:54 C-Reactive Protein 7.8 mg/L (0.0-4.9) H 01/16/25 12:53 Total Protein 6.3 g/dL (6.6-8.7) L 01/18/25 04:17 Albumin 3.6 g/dL (3.5-5.2) 01/18/25 04:17 Globulin 2.7 g/dL (1.3-4.6) 01/18/25 04:17 Procalcitonin 0.14 ng/mL (0-0.5) 01/16/25 12:53 Urine Color Yellow (Yellow) 01/16/25 14:29 Urine Appearance Cloudy (CLEAR) A 01/16/25 14:29 Urine pH 5 (5-7) 01/16/25 14:29 Ur Specific [place] 1.025 (1.005-1.030) 01/16/25 14:29 Urine Protein Trace (Negative) 01/16/25 14: Urine Glucose (UA) Norm (Normal) 01/16/25 14:29 Urine Ketones Negative (Negative) 01/16/25 14:29 Urine Blood Neg (Negative) 01/16/25 14: Urine Nitrate Negative (Negative) 01/16/25 14: Urine Bilirubin 1+ (Negative) H 01/16/25 14:29 Urine Urobilinogen 4 mg/dL (Negative) H 01/16/25 14:29 Ur Leukocyte Esterase Trace (Negative) H 01/16/25 14:29 Urine RBC 0-2 /hpf (0-2) 01/16/25 14:29 Urine WBC 0-5 /hpf (0-5) 01/16/25 14:29 Ur Squamous Epith Cells 0-5 /hpf (0-5) 01/16/25 14:29 Calcium Oxalate Crystal 10-15 /hpf H 01/16/25 14:29 Amorphous Sediment Not Reportable 01/16/25 14:29 Urine Bacteria None seen /hpf (NONE) 01/16/25 14:29 Hyaline Casts 2.05 /lpf 01/16/25 14:29 Coarse Granular Casts 0-4 /lpf H 01/16/25 14:29 Influenza A (PCR) Negative (Negative) 01/16/25 13:03 Influenza Type B (PCR) Negative (Negative) 01/16/25 13:03 RSV (PCR) Negative (Negative) 01/16/25 13:03 SARS-CoV-2 (PCR) Negative (Negative) 01/16/25 13:03 Vitals Last Vital Signs Temp 98.5 F 01/18/25 11:54 Pulse 72 01/18/25 11:54 Resp 17 01/18/25 11:54 BP 152/83 01/18/25 11:54 Pulse Ox 97 01/18/25 11:54 O2 Del Method Room Air 01/18/25 08:00 Discharge Plan Discharge Patient Disposition: Home Condition: Stable Prescriptions: New ciprofloxacin HCl [Cipro] 500 mg tablet 500 mg PO Q12H 5 Days Qty: 10 0RF amlodipine 5 mg tablet 5 mg PO DAILY Qty: 30 0RF Continued bupropion HCl [Wellbutrin XL] 150 mg tablet extended release 24 hr 150 mg PO QAM Qty: 30 2RF duloxetine 60 mg capsule,delayed release(DR/EC) 120 mg PO DAILY Qty: 30 2RF sulfamethoxazole-trimethoprim 800-160 mg tablet 1 tab PO BID ezetimibe 10 mg Tablet 10 mg PO DAILY Held lisinopril 20 mg tablet 20 mg PO DAILY Qty: 90 0RF Hold Instructions: Resume on 01/25/25. Discharge Orders: Discharge Order (Routine); Ordered 01/18/25 Ordered By: Narcisa Romero Referrals: Mirlande Galvin FNP [Referring] - 01/25/25 1:00 pm Discharge Diet: Usual diet Discharge Activity: Resume usual activity Patient Instructions: Ciprofloxacin (By mouth), Amlodipine (By mouth), Acute Kidney Injury (GEN), Urinary Tract Infection in Women (GEN), Opioid Safety Discharge Attestations Time Spent in Discharge Care*: greater than 30 min Quality Metrics Clinical Quality Measures [ No reported AMI, CVA or VTE this stay] Coding Level of Care Code Acute Code for Chg Fwd Diagnoses MELYSSA (acute kidney injury) N17.9 Benign essential HTN I10 Acute on chronic renal insufficiency N28.9; N18.9 Urinary tract infection N39.0 Dysuria R30.0 History of left nephrectomy Z90.5 Dyslipidemia E78.5
== END 2025-01-18 11:55 | disposition home or self-care (01) | DRG 683 ==
LOC: ER 14:54 → MEDSURG 15:33
PROVIDERS: Admitting Provider Internal Medicine; Emergency Provider Emergency Medicine; Visit Provider Student in an Organized Health Care Education/Training Program
DX: N17.9 Acute kidney failure, unspecified (principal); N39.0 Urinary tract infection, site not specified; T36.8X5A Adverse effect of other systemic antibiotics, initial encounter; I12.9 Hypertensive chronic kidney disease with stage 1 through stage 4 chronic kidney disease, or unspecified chronic kidney disease; N18.9 Chronic kidney disease, unspecified; F32.9 Major depressive disorder, single episode, unspecified; F41.1 Generalized anxiety disorder; Z85.528 Personal history of other malignant neoplasm of kidney; Z90.5 Acquired absence of kidney
CPT/HCPCS: 36415; 36416; 71045; 74176; 80053; 81001; 82962; 83605; 83735; 84145; 84484; 85025; 86140; 87040; 87086; 87637; 93005; 96361; 96372; 96374; 99285; J0692; J0696; J1644; J7030; J9999

== ENCOUNTER 2025-01-28 12:51 | Outpatient (CLI) | payer SELFPAY ==
[2024-12-13 09:51] VITALS: BP 130/87; BMI 36.8
[2025-01-28 13:47] LABS: Bilirubin Urine Negative (Negative); Blood Urine Negative (Negative); Glucose Urine UA Negative (Normal); Ketones Urine Negative (Negative); Leukocyte Esterase Urine Negative (Negative); Nitrate Urine Negative (Negative); Protein Urine Negative (Negative); Specific Gravity, Urine 1.005 (1.005-1.030); Urine Appearance Clear (CLEAR); Urine Color Yellow (Yellow); Urobilinogen Urine 0.2 mg/dL (Negative); pH Urine 5.5 (5-7)
[2025-01-28 13:52] LABS: Add Urine Microscopic? YES; Bacteria Urine None Seen /hpf; Hyaline Casts Urine 0-4 /lpf; RBC Urine 0-2 /hpf (0-2); Squamous Epithelial Cell Urine 0-5 /hpf (0-5); WBC Urine 0-5 /hpf (0-5)
[2025-01-28 14:05] LABS: Blood Urea Nitrogen 19 mg/dL (6-20); Calcium 9.4 mg/dL (8.5-10.5); Carbon Dioxide 20 mmol/L (22-29); Chloride 101 mmol/L (98-107); Glomerular Filtration Rate 39.2 mL/min (90-130); Glucose 90 mg/dL (65-115); Osmolality Calculated 282 mOsm/kg (285-295); Sodium 135 mmol/L (136-145)
[2025-01-28 14:16] LABS: Anion Gap 18.5 (5-19); Potassium 4.5 mmol/L (3.5-5.1)
== END 2025-01-28 12:52 | disposition home or self-care (01) ==
PROVIDERS: Visit Provider Nurse Practitioner Family
DX: N17.9 Acute kidney failure, unspecified (principal); R30.0 Dysuria
CPT/HCPCS: 36415; 80048; 81001

== ENCOUNTER 2025-05-04 10:25 | Outpatient (CLI) | payer OTHER, SELFPAY ==
[2024-12-13 09:51] VITALS: BP 130/87; BMI 36.8
--- NOTE | 2025-05-04 10:38 | XR_ITS ---
WS: [id number] AP and lateral thoracolumbar spine, 05/04/2025 Clinical Data: CERVICAL THORACIC SPINE PAIN/CERVICALGIA Comparison: None. Findings: There is osteoarthritic spurring of the visualized thoracic vertebral bodies and the L1 vertebral body. There is a slight dextroscoliosis of the thoracic spine. There are no compression fractures. The paravertebral regions and disc spaces are normal. There are right upper quadrant cholecystectomy clips. XR/XR thoracolumbar junct [id number] Impression: 1. 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 2. Minimal dextroscoliosis of the thoracic spine.
--- NOTE | 2025-05-04 10:38 | XR_ITS ---
WS: [id number] Cervical spine, 6 views including both obliques, odontoid view and lateral lower cervical spine view, 05/04/2025 Clinical Data: CERVICALGIA/PAIN IN THORACIC SPINE Comparison: None. Findings: No compression fractures are seen. The disc heights are normal. There is no prevertebral soft tissue swelling. The odontoid is unremarkable. The soft tissues of the neck and the lung apices are normal. The oblique images show no foraminal narrowing. XR/XR cervical spine 4-5V [id number] Impression: Negative cervical spine with negative oblique images.
== END 2025-05-04 10:26 | disposition home or self-care (01) ==
PROVIDERS: Visit Provider Nurse Practitioner Family
DX: M54.2 Cervicalgia (principal); M54.6 Pain in thoracic spine
CPT/HCPCS: 72050; 72080

== ENCOUNTER 2025-09-19 11:38 | Observation (INO) | payer MEDICAID, SELFPAY ==
[2024-12-13 09:51] VITALS: BP 130/87; BMI 36.8
[2025-09-19] VITALS (14 sets, daily range): BP systolic 121–155; BP diastolic 60–94; PULSE 70–87; RESP 14–22; TEMP 36.4–36.8; O2SAT 92–99; BMI 35.7
--- NOTE | 2025-09-19 11:39 | XRR_ITS ---
PROCEDURE INFORMATION: Exam: XR Chest Exam date and time: 09/19/2025 11:47 AM Age: 54 years old Clinical indication: Pain; Angina pectoris; HX of kidney cancer; Additional info: Chest pain TECHNIQUE: Imaging protocol: Radiologic exam of the chest. Views: 1 view. COMPARISON: CR XR chest 1V portable [id number] 01/16/2025 1:07 PM FINDINGS: Lungs: Unremarkable. No consolidation. Pleural spaces: Unremarkable. No pleural effusion. No pneumothorax. Heart/Mediastinum: Unremarkable. No cardiomegaly. Bones/joints: There are moderate degenerative changes of the bony structures. No lytic or blastic lesions identified. XR/XR chest 1V portable [id number] IMPRESSION: Stable findings.
--- NOTE | 2025-09-19 11:45 | ECG_ITS ---
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 Measurements Intervals [place] Rate: 82 P: -1 WA: 173 QRS: -19 QRSD: 80 T: -21 QT: 368 QTc: 432 Interpretive Statements SINUS RHYTHM MODERATE VOLTAGE CRITERIA FOR LVH, CONSIDER NORMAL VARIANT [MEETS CRITERIA IN ONE OF: R(aVL), S(V1), R(V5), R(V5/V6)+S(V1)] NONSPECIFIC ST & T-WAVE ABNORMALITY Compared to ECG 01/16/2025 18:15:51 No significant changes Electronically Signed On 09-20-2025 21:28:59 DYE BLENDER by Iain Garcia M.D. [email or web address]
--- NOTE | 2025-09-19 12:07 | W.ED.CHESTPA ---
HPI - Chest Pain General: Chief Complaint: Chest Pain Stated Complaint: cp Time Seen by Provider: 09/19/25 11:57 History of Present Illness: 54-year-old female with a history of obesity and hypertension who presents emergency room with chest pain. Said it started last night. She had an episode but it moved to her back and so she thought it was just musculoskeletal pain. Today while her was at dialysis it started again. Left central chest tightness/pressure/squeezing. No cough. No fever. No shortness of breath. No nausea or vomiting. No abdominal pain. No known cardiac history Related Data Home Medications ?Medication ?Instructions ?Recorded ?Confirmed ezetimibe 10 mg tablet 10 mg PO DAILY 01/16/25 09/19/25 famotidine 20 mg tablet 20 mg PO BID 09/19/25 09/19/25 polyethylene glycol 3350 17 See Rx Instructions .Route .COMPLEX 09/19/25 09/19/25 gram/dose oral powder tizanidine 2 mg tablet 4 mg PO Q8H PRN Spasms 09/19/25 09/19/25 Previous Rx's ?Medication ?Instructions ?Recorded amlodipine 5 mg tablet 5 mg PO DAILY #30 tabs 01/18/25 bupropion HCl 300 mg 24 hr tablet, 300 mg PO QAM #30 tabs 04/05/25 extended release (Wellbutrin XL) duloxetine 60 mg capsule,delayed 60 mg PO DAILY #30 caps 04/05/25 release duloxetine 30 mg capsule,delayed 30 mg PO DAILY #30 caps 07/07/25 release Allergies Allergy/AdvReac Type Severity Reaction Status Date / Time No Known Allergies Allergy Verified 07/07/25 14:09 Review of Systems Narrative: Constitutional symptoms: Negative except as documented in HPI. Skin symptoms: Negative except as documented in HPI. Eye symptoms: Negative except as documented in HPI. ENMT symptoms: Negative except as documented in HPI. Respiratory symptoms: Negative except as documented in HPI. Cardiovascular symptoms: Negative except as documented in HPI. Gastrointestinal symptoms: Negative except as documented in HPI. Genitourinary symptoms: Negative except as documented in HPI. Musculoskeletal symptoms: Negative except as documented in HPI. Neurologic symptoms: Negative except as documented in HPI. Psychiatric symptoms: Negative except as documented in HPI. Endocrine symptoms: Negative except as documented in HPI. PFS ED PFS: Medical History (Updated 09/19/25 @ 14:09 by Kathy Castano MD) Psychiatric care History of kidney stones Stent x 2, lithotripsy x 2 Dyslipidemia Osteoarthritis involving multiple joints on both sides of body ELDER (generalized anxiety disorder) Major depressive disorder GERD (gastroesophageal reflux disease) Benign essential HTN Surgical History (Updated 01/19/25 @ 00:00 by INO Craven) History of partial hysterectomy 2016 History of cholecystectomy History of delivery x 4 Family History Grandmother Diabetes mellitus, type 2 Heart disease Hypertension Mother Hypertension Stroke Social History Smoking and tobacco/nicotine status: never used tobacco/nicotine Alcohol intake: current Alcohol intake frequency: holidays/special occasions only Substance/Drug Use: never Adopted: No Household members: spouse and children Housing: House Marital status: Highest education level completed: Associate Degree: Occupational, Technical, Vocational Program service: No Current occupational status: employed Current occupational exposures/hazards: No Physical Exam Narrative: EXAM NARRATIVE: General: Alert, no acute distress. Skin: Warm, dry. Head: Normocephalic, atraumatic. Neck: Supple, trachea midline. Eye: Extraocular movements are intact. Ears, nose, mouth and throat: mucosa moist. Cardiovascular: Regular, Normal peripheral perfusion. Respiratory: Lungs are clear to auscultation, respirations are non-labored, breath sounds are equal, Symmetrical chest wall expansion. Gastrointestinal: Soft, Nontender, Non distended Musculoskeletal: Normal ROM, no deformity. Neurological: Alert and oriented, No focal neurological deficit observed. Psychiatric: Cooperative, appropriate mood & affect. Course Vital Signs: Vital signs: Vital Signs Temperature 97.9 F 09/19/25 11:41 Pulse Rate 72 09/19/25 13:59 Respiratory Rate 16 09/19/25 13:59 Blood Pressure 144/82 09/19/25 13:59 Pulse Oximetry 94 09/19/25 13:59 Oxygen Delivery Me thod Room Air 09/19/25 13:59 MDM - Chest Pain Medical Decision Making Medical decision making Patient's reason for coming to the emergency room: Chest pain Social determinants: Patient is disabled. . I reviewed the patient's medical record. 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 No anticoagulation Alternate historians: None Differential diagnosis for patient with chest pain includes but is not limited to and based on the above HPI, review of systems and physical exam: Pneumonia. unstable angina. angina. Acute coronary syndrome / [place]. Pulmonary embolism. Costochondritis / musculoskeletal. Pleurisy. Pericarditis. Esophageal spasm. Pancreatitis. Cholecystitis. Orders placed to evaluate differential diagnosis based on the above differential, HPI and physical exam EK:45 AM. Rate 82. LVH. Normal sinus rhythm, nonspecific ST changes, no ectopy, normal UT & QRS intervals, This was reviewed and interpreted by myself the ER physician at 11:50 AM. EKG: Time 1306. Rate 72. Normal sinus rhythm, nonspecific ST changes, no ectopy, normal UT & QRS intervals, This was reviewed and interpreted by myself the ER physician at 1310. No significant changes from EKG done previously today in the emergency room. Chest x-ray: No acute process. No infiltrate. No pneumothorax. This was reviewed and interpreted by myself the emergency room physician. I also reviewed the radiology report. Lab Review: Laboratory results were reviewed and interpreted by myself the emergency room physician. No leukocytosis. No anemia. Mild stable chronic renal insufficiency with an BUN of 1.4 troponin baseline 15. Repeat 13. Nonsignificant delta. Assessment of risk: Level of risk: Moderate risk patient. Multiple risk factors. Hospitalization considerations: Patient being admitted for observation for chest pain Clinical decision support: Heart score of 6. Recommends observation and rule out testing. Reexamination: Patient remained stable. No increased work of breathing. No altered mental status. No focal motor deficits. Nitroglycerin did not really help her pain much. We are giving some morphine now. We discussed placement in observation for a rule out and she would like this. Consultation: I spoke Dr. Darnell who is on-call for the hospital service who agrees to admission. Assessment and plan: Chest pain ?Nitro, morphine, Zofran. -I discussed the patient with the hospitalist on-call who is admitting the patient. - Discussed findings and plan with patient. Answered any questions. - All laboratory values were reviewed and interpreted personally by myself, the ER physician - All imaging was reviewed and interpreted personally by myself, the ER physician. - Evaluation and treatment of this problem were appropriate in the emergency setting Lab Data 09/19/25 12:17 09/19/25 12:17 Radiology Impressions Chest X-Ray 09/19/25 11:39 IMPRESSION: Stable findings. Laboratory Results WBC 7.75 10^3/uL (3.29-11.43) 09/19/25 12:17 RBC 4.34 10^6/uL (3.85-5.65) 09/19/25 12:17 Hgb 12.90 g/dL (11.27-16.99) 09/19/25 12:17 Hct 39.4 % (36-47) 09/19/25 12:17 MCV 90.8 fl (85-98) 09/19/25 12:17 MCH 29.7 pg (27-33) 09/19/25 12:17 MCHC 32.7 g/dL (30-55) 09/19/25 12:17 RDW 13.2 % (12.1-15.1) 09/19/25 12:17 Plt Count 305 10^3/cmm (157-399) 09/19/25 12:17 MPV 9.4 fL (7.4-10.4) 09/19/25 12:17 Neut % (Auto) 66.4 % 09/19/25 12:17 Lymph % (Auto) 23.6 % 09/19/25 12:17 [place] % (Auto) 7.9 % 09/19/25 12:17 Eos % (Auto) 0.9 % 09/19/25 12:17 Baso % (Auto) 0.9 % 09/19/25 12:17 Neut # (Auto) 5.15 10^3/uL (1.8-7.7) 09/19/25 12:17 Lymph # (Auto) 1.8 10^3/uL (0.8-4.8) 09/19/25 12:17 [place] # (Auto) 0.6 10^3/uL (0.2-0.9) 09/19/25 12:17 Eos # (Auto) 0.1 10^3/uL (0.0-0.8) 09/19/25 12:17 Baso # (Auto) 0.1 10^3/uL (0.0-0.1) 09/19/25 12:17 Nucleated RBC % (auto) 0 % 09/19/25 12:17 Nucleated RBCs # 0.0 /100WBC 09/19/25 12:17 PT 12.30 SECONDS (12.1-14.9) 09/19/25 12:17 INR 0.85 (0.8-1.2) 09/19/25 12:17 APTT 26.8 SECONDS (23.9-36.7) 09/19/25 12:17 Sodium 136 mmol/L (136-145) 09/19/25 12:17 Potassium 4.8 mmol/L (3.5-5.1) 09/19/25 12:17 Chloride 102 mmol/L (98-107) 09/19/25 12:17 Carbon Dioxide 22 mmol/L (22-29) 09/19/25 12:17 Anion Gap 16.8 (5-19) 09/19/25 12:17 BUN 15 mg/dL (6-20) 09/19/25 12:17 Creatinine 1.4 mg/dL (0.5-0.9) H 09/19/25 12:17 GFR Calculation 39.2 mL/min (90-130) L 09/19/25 12:17 Glucose 93 mg/dL (65-115) 09/19/25 12:17 Calculated Osmolality 283 mOsm/kg (285-295) L 09/19/25 12:17 Calcium 9.4 mg/dL (8.5-10.5) 09/19/25 12:17 Total Bilirubin 0.4 mg/dL (0.15-1.2) 09/19/25 12:17 AST 23 U/L (0-32) 09/19/25 12:17 ALT 17 U/L (0-33) 09/19/25 12:17 Alkaline Phosphatase 127 U/L (35-105) H 09/19/25 12:17 Troponin T Baseline 15 ng/L (0-10) H 09/19/25 12:17 Troponin T 60 Minute 13.35 ng/L (0-10) H 09/19/25 13:10 Delta Troponin T -1.65 ABS# (0-10) L 09/19/25 13:10 NT-Pro-B Natriuret Pep 94 pg/mL (0-125) 09/19/25 12:17 Total Protein 7.3 g/dL (6.6-8.7) 09/19/25 12:17 Albumin 4.6 g/dL (3.5-5.2) 09/19/25 12:17 Globulin 2.7 g/dL (1.3-4.6) 09/19/25 12:17 Lipase 40 U/L (13-60) 09/19/25 12:17 All radiology interpretation(s) finalized by discharge Clincial Decision Support The following clinical decision support tools were used to aid in care of the patient HEART Score -> History: Highly Suspicious, EKG: Non-specific Changes, Age: 45-64 yrs, Risk Factors: >/=3 Risk Factors, Troponin: Baseline Trop <16 ng/L. Resulting HEART Score: 6. Discharge Plan Discharge Patient Disposition: Placed in Observation Clinical Impression: Chest pain Coding Level of Care Code ED Internal Recruiter for [facility] Heart Score HEART Score Components History: Highly Suspicious EKG: Non-specific Changes Age: 45-64 yrs Risk Factors: >/=3 Risk Factors Troponin: Baseline Trop <16 ng/L HEART Score RESULT HEART Score: 6
[2025-09-19 12:24] LABS: Hematocrit 39.4 % (36-47); Hemoglobin 12.90 g/dL (11.27-16.99); Mean Corpuscular HGB Conc 32.7 g/dL (30-55); Mean Corpuscular Hemoglobin 29.7 pg (27-33); Mean Corpuscular Volume 90.8 fl (85-98); Nucleated Red Blood Cells % 0 %; Platelet Count 305 10^3/cmm (157-399); Red Blood Count 4.34 10^6/uL (3.85-5.65); White Blood Count 7.75 10^3/uL (3.29-11.43)
[2025-09-19 12:46] LABS: INR 0.85 (0.8-1.2); Prothrombin Time 12.30 SECONDS (12.1-14.9)
[2025-09-19 12:47] LABS: Partial Thromboplastin Time 26.8 SECONDS (23.9-36.7)
[2025-09-19 12:48] LABS: Troponin(5th) Baseline 15 ng/L (0-10)
[2025-09-19 13:01] LABS: Alanine Aminotransferase 17 U/L (0-33); Albumin Level 4.6 g/dL (3.5-5.2); Alkaline Phosphatase 127 U/L (35-105); Blood Urea Nitrogen 15 mg/dL (6-20); Calcium 9.4 mg/dL (8.5-10.5); Carbon Dioxide 22 mmol/L (22-29); Chloride 102 mmol/L (98-107); Globulin 2.7 g/dL (1.3-4.6); Glucose 93 mg/dL (65-115); Lipase 40 U/L (13-60); NT Pro B Type Natriuretic Pept 94 pg/mL (0-125); Osmolality Calculated 283 mOsm/kg (285-295); Sodium 136 mmol/L (136-145); Total Protein 7.3 g/dL (6.6-8.7)
--- NOTE | 2025-09-19 13:06 | ECG_ITS ---
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 Measurements Intervals [place] Rate: 72 P: 0 [place]: 162 QRS: -11 QRSD: 83 T: -1 QT: 389 QTc: 428 Interpretive Statements SINUS RHYTHM MINIMAL VOLTAGE CRITERIA FOR LVH, CONSIDER NORMAL VARIANT [MEETS CRITERIA IN ONE OF: R(aVL), S(V1), R(V5), R(V5/V6)+S(V1)] NONSPECIFIC ST & T-WAVE ABNORMALITY Compared to ECG 01/16/2025 18:15:51 No significant changes Electronically Signed On 09-20-2025 21:53:27 KARATE TEACHER by Iain Garcia M.D. [id number]
[2025-09-19 13:48] LABS: Anion Gap 16.8 (5-19); Aspartate Amino Transferase 23 U/L (0-32); Potassium 4.8 mmol/L (3.5-5.1)
[2025-09-19] MEDS: morphine 4 mg/mL SDV 1 mL IVP (14:19)
[2025-09-19] MEDS: ondansetron 2 mg/ML SDV 2 mL 4 MG IVP (14:20)
--- NOTE | 2025-09-19 14:46 | PM.HP ---
Providers/Chief Complaint Admitting Physician: Dr. Stapleton Primary Care Provider: Elva Draper NP Chief Complaint: cp History of Present Illness Bruce Ballesteros is a 54 year old female w/ pmhx of HTN, dyslipidemia, obesity, ELDER, MDD, and GERD presents to the ED today w/ c/o chest pain. Patient states that she had a anginal episode last night that began around 1930- she took a muscle relaxer and aspirin and went to bed woke up around 0200 with persisting chest pain. She reports the pain radiated to her back last night. Today patient came in because chest pain changed since over night, she reports pain to left central chest described as tightness, pressure, squeezing. Patient states, It feels like something sitting on my chest. She reports associated s/s of palpitations, shortness of breath with exertion, and reflux-like symptoms. Patient denies fever, shortness of breath, cough, N/V/D, ABD pain, changes in bowel/bladder habits, and any recent medication changes. Patient will be admitted to hospitalist services for further medical management and care. While in ED a CBC, CMP, troponin series, BNP was obtained and resulted as follows: CBC was unremarkable. 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 Troponin baseline 15, Troponin 2-hour 13.35, delta troponin T -1.65. While in the ED the following medications were administered: Aspirin 324 mg p.o., nitroglycerin 0.4 mg sublingual, Zofran 4 mg IVP, morphine 4 mg IVP. Review of Systems General: Reports: 10 or more systems reviewed and unremarkable except in HPI and below Medications/Allergies Home Medications ?Medication ?Instructions ?Recorded ?Confirmed ?Last Taken ?Type ezetimibe 10 mg tablet 10 mg PO DAILY 01/16/25 09/19/25 09/19/25 History amlodipine 5 mg tablet 5 mg PO DAILY #30 tabs 01/18/25 09/19/25 09/19/25 Rx bupropion HCl 300 mg 24 hr tablet, 300 mg PO QAM #30 tabs 04/05/25 09/19/25 09/19/25 Rx extended release (Wellbutrin XL) duloxetine 60 mg capsule,delayed 60 mg PO DAILY #30 caps 04/05/25 09/19/25 09/19/25 Rx release duloxetine 30 mg capsule,delayed 30 mg PO DAILY #30 caps 07/07/25 09/19/25 09/19/25 Rx release famotidine 20 mg tablet 20 mg PO BID 09/19/25 09/19/25 09/19/25 History polyethylene glycol 3350 17 See Rx Instructions .Route .COMPLEX 09/19/25 09/19/25 09/19/25 History gram/dose oral powder tizanidine 2 mg tablet 4 mg PO Q8H PRN Spasms 09/19/25 09/19/25 Unknown History Allergies Allergy/AdvReac Type Severity Reaction Status Date / Time No Known Allergies Allergy Verified 07/07/25 14:09 PFSH Acute PFSH: Medical History (Updated 09/19/25 @ 17:33 by Reena Loredo NP) Psychiatric care History of kidney stones Stent x 2, lithotripsy x 2 Dyslipidemia Osteoarthritis involving multiple joints on both sides of body ELDER (generalized anxiety disorder) Major depressive disorder, remission status unspecified, unspecified whether recurrent GERD (gastroesophageal reflux disease) Benign essential HTN Surgical History (Updated 01/19/25 @ 00:00 by INO Craven) History of partial hysterectomy 2016 History of cholecystectomy History of delivery x 4 Family History Grandmother Diabetes mellitus, type 2 Heart disease Hypertension Mother Hypertension Stroke Social History Smoking and tobacco/nicotine status: never used tobacco/nicotine Alcohol intake: current Alcohol intake frequency: holidays/special occasions only Substance/Drug Use: never Adopted: No Household members: spouse and children Housing: House Marital status: Highest education level completed: Associate Degree: Occupational, Technical, Vocational Program service: No Current occupational status: employed Current occupational exposures/hazards: No Vitals/I&O/Wt Last Vital Signs Temp 97.9 F 09/19/25 11:41 Pulse 72 09/19/25 13:59 Resp 16 09/19/25 14:19 BP 144/82 09/19/25 13:59 Pulse Ox 95 09/19/25 14:19 O2 Del Method Room Air 09/19/25 13:59 Weight last 48 hrs Weight 92.986 kg Physical Exam Narrative: General: A&Ox4, on RA family noted to be at bedside. No apparent distress. HEENT: Normo-cephalic, atraumatic, grossly unremarkable exam Cardio: NSR, normal S1-S2 w/o any murmurs, rubs, or gallops and JVD normal Respiratory: Clear breathing on auscultation w/o any wheezes, stridor, rhonchi GI: Abd soft, non-tender, non-distended, normo-active bowel sounds present Neuro: Moves all extremities, no sensory deficits, Normal speech Behavior: Appropriate and cooperative Extremities: Adequate palpable pulses. No clubbing, cyanosis or edema, Full ROM Data 09/19/25 12:17 09/19/25 12: Other Labs: 09/19: EKG 1306: NSR, no ST changes, QRS 83, QTc 428, HR 72 09/19: EKG 1145: NSR, no ST changes, QRS 80, QTc 432, HR 82 09/19: CXR: reviewed and results as follows: No acute process. No infiltrate. No pneumothorax. A&P Assessment and plan 1. Chest pain, unspecified type: 2. Benign essential HTN: 3. Dyslipidemia: 4. Gastroesophageal reflux disease without esophagitis: 5. Major depressive disorder, remission status unspecified, unspecified whether recurrent: 6. ELDER (generalized anxiety disorder): Plan: Chest Pain ACS r/o ? Troponin baseline 15, Troponin 2-hour 13.35, delta troponin T -1.65. ? 09/19: EKG 1306: NSR, no ST changes, QRS 83, QTc 428, HR 72 ? 09/19: EKG 1145: NSR, no ST changes, QRS 80, QTc 432, HR 82 ? 09/19: CXR: No acute process. No infiltrate. No pneumothorax. ? GI cocktail trial- pt complaining of reflex like symtoms ? Cardiology consulted-Dr. Garcia recommendations and expertise appreciated. ? Echo ordered, pending. ? Stress test for a.m. ? Analgesics as needed for pain. ? Continuous cardiac monitoring ? Vital signs as per protocol ? Serial troponins, continue to follow ? Monitor for reoccurrence of chest discomfort or new ischemic changes. ? Aspirin 325 mg PO dly ? Nitroglycerin sublingual as needed HTN ? Continue home medication amlodipine 5 mg PO dly ? Monitor vital signs as per protocol Dyslipidemia ? Lipid panel ordered, pending ? Continue home medication Ezetimibe 10 mg PO dly GERD ? Hold home medication famotidine 20 mg PO dly ? Protonix 40 mg PO dly MDD ELDER ? Continue home medication Bupropion HCI 300 mg PO dly, Duloxetine 90 mg PO dly CODE STATUS: Full code GI prophylaxis: Protonix 40 mg PO dly VTE prophylaxis: Lovenox 40 mg SC dly PDMP PDMP Reviewed: Not Reviewed Attestations Medical Necessity Statement*: Admitted under observation status. Given complexity of patient's presentation, co-morbid conditions, and required intensity of treatment, a hospitalization under two midnights is anticipated. and High Time for a total of 76 minutes, includes reviewing past or interval history, examining/interviewing patient, placing orders, counseling patient/family/other support, updating patient/family/other support, discussing plan of care with staff, communicating with other healthcare providers, documenting encounter and coordinating care Diagnoses Chest pain, unspecified type R07.9 Chest pain type: unspecified Benign essential HTN I10 Dyslipidemia E78.5 Gastroesophageal reflux disease without esophagitis K21.9 Esophagitis presence: without esophagitis Major depressive disorder, remission status unspecified, unspecified whether recurrent F32.9 Major depression recurrence: unspecified whether recurrent Active/Remission status: remission status unspecified ELDER (generalized anxiety disorder) F41.1
--- NOTE | 2025-09-19 17:08 | USCV_ITS ---
Bruce Ballesteros Age: 54 Gender: F : 1970 Exam Date: 09/19/2025 18:49 Ordering Phys: Reena Loredo NP Technologist: VIKTORIYA Exam Location: [facility] [place] Indication: Persistent chest pain, History of HTN, ELDER, MDD BP: 143 / 79 HR: 66 Rhythm: Sinus Technical Quality: Adequate MEASUREMENTS (Male / Female) Normal Values 2D ECHO LV Diastolic Diameter PLAX 4.3 cm 4.2 - 5.9 / 3.9 - 5.3 cm IVS Diastolic Thickness 1.6 cm 0.6 - 1.0 / 0.6 - 0.9 cm IVS Systolic Thickness 1.7 cm LVPW Diastolic Thickness 1.9 cm 0.6 - 1.0 / 0.6 - 0.9 cm LVPW Systolic Thickness 1.9 cm LVOT Diameter 2.1 cm LV Ejection Fraction 2D Teich 51.8 % LV Ejection Fraction MOD 4C 60.8 % LV Ejection Fraction MOD 2C 53.5 % LV Ejection Fraction 2C AL 54.1 % LA Diameter 3.5 cm Aorta at Sinotubular Diameter 3.0 cm IVC Diameter 2.1 cm M-MODE LA Ao Ratio MM 1.0 AV Cusp Separation MM 2.0 cm DOPPLER AV Peak Velocity 123.0 cm/s LVOT Peak Velocity 92.0 cm/s AV Area Cont Eq vti 3.2 cm squared AV Area Cont Eq pk 2.5 cm squared MV Peak Velocity 109.0 cm/s MV Area PHT 2.8 cm squared Mitral E to A Ratio 1.0 TV Peak E Velocity 53.0 cm/s PV Peak Velocity 106.0 cm/s FINDINGS Left Ventricle Normal left ventricular size and systolic function, EF 61%.mild left ventricular hypertrophy. No regional wall motion abnormalities. Grade I/IV diastolic dysfunction (abnormal relaxation filling pattern), normal to mildly elevated filling pressures. Right Ventricle Normal right ventricular size and systolic function. Right Atrium Normal right atrial size. Left Atrium Mildly increased left atrial size. IA Septum Normal appearance of the interatrial septum. Mitral Valve Mild mitral annular calcification. Aortic Valve Minimally thickened aortic valve Tricuspid Valve No gross abnormalities noted Pulmonic Valve Pulmonic valve not well visualized. Pericardium No pericardial effusion. Aorta Normal aorta size at the level of the sinus of valsalva. IVC Normal inferior vena cava. CONCLUSIONS Normal left ventricular size and systolic function, EF 61%.mild left ventricular hypertrophy. No regional wall motion abnormalities. Grade I/IV diastolic dysfunction (abnormal relaxation filling pattern), normal to mildly elevated filling pressures. Mildly increased left atrial size. Mild mitral annular calcification. Minimally thickened aortic valve. There are no intracardiac masses. No similar previous studies are available for comparison Dr Iain aGrcia MD [facility] (Electronically Signed) Final Date: 19 September 2025 21:44 S
--- NOTE | 2025-09-19 17:09 | ECG_ITS ---
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 Interpretive Statements Lung unchanged pre/post procedure; patient with projectile vomiting that resoled after the administration of zofran and aminophylline PROCEDURE: At the baseline, the EKG revealed normal sinus rhythm with diffuse nonspecific ST-T changes.. The baseline heart was 81 bpm with a blood pressue of 117/74 mm of Hg Lexiscan was infused over a period of 20 seconds. A total of 0.4 milligrams of Lexiscan was infused. The stress phase was continued for a total of 5 minutes. Heart rate at the end of the stress phase was 109 bpm with a blood pressure 171/84 mm of Hg. The EKG at the peak infusion revealed no significant changes. Sestamibi was injected 20 seconds after the Lexiscan infusion. Heart rate at the end of the recovery phase was 79 bpm with a blood pressure of 136/81 mm of Hg. CONCLUSION: 1. No significant EKG changes with the LexiScan infusion 2. No LexiScan induced chest pain or cardiac arrhythmia 3. Normal blood pressure and heart rate response 4. Sestamibi/sestamibi perfusion scan pending; see separate report. Electronically Signed On 09-21-2025 20:45:30 GLYCERIN OPERATOR by Iain Garcia M.D. [email or web address]
--- NOTE | 2025-09-19 17:39 | ECG_ITS ---
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 Measurements Intervals [place] Rate: 80 P: 22 SC: 168 QRS: -3 QRSD: 89 T: 47 QT: 377 QTc: 436 Interpretive Statements SINUS RHYTHM NONSPECIFIC ST & T-WAVE ABNORMALITY Compared to ECG 09/19/2025 13:06:16 No significant changes Electronically Signed On 09-20-2025 21:50:15 PHARMACOEPIDEMIOLOGIST by Iain Garcia M.D. [email or web address] [email or web address]
--- NOTE | 2025-09-19 18:07 | PC.NURSE ---
Patient transferred from ED to CSU at 1725.
[2025-09-19] MEDS: lidocaine 2% viscous 15 ML, aluminum-mag hydrox-simethicon 30 ML, sucralfate oral liq 1 GM PO ×2 (18:20→21:45)
[2025-09-19 18:28] LABS: Troponin 5 6HR 15.24 ng/L (0-10); Troponin 5 6HR Delta 0.24 ng/L (0-12)
[2025-09-19 18:47] LABS: Magnesium 2.3 mg/dL (1.7-2.3); Thyroid Stimulating Hormone 2.00 uIU/mL (0.27-4.20)
--- NOTE | 2025-09-19 18:55 | PM.CONSULT ---
Providers/Reason For Consult Consulting Physician/Specialty*: HEATHER Garcia MD/cardiology Reason for Consult*: Patient with the chest pain Requesting Physician: Dr. Stapleton Attending Physician: Logan Stapleton Primary Care Provider: Elva Draper NP History of Present Illness History of Present Illness Bruce Ballesteros is a 54 year old female is admitted to hospital through the emergency room, where she presented with complaints of chest pain. Cardiology consult is requested for further cardiac evaluation recommendations. This patient has a history of hypertension and dyslipidemia for the last 1 and 20 years. She also has a history of? Fibromyalgia, major depressive disorder chronic kidney disease/unilateral kidney and? GERD. She has been in her baseline state of health up until last evening around 730, she had an episode of chest pain while being in her recliner. She took a muscle relaxant thinking that the pain could be related to muscle spasms. Apparently she went to sleep afterwards. Around 2:00 she woke up again with pain and pressure in the chest. This centimeter lasted for half an hour to an hour or so and thenit gradually subsided. The pain was in the upper part of the chest, radiating across the upper chest and also to the back. The shoulder blades. Eventually she went back to bed. Around 5:30 in the morning, she woke up with a pressure-like feeling in the chest and pain similar to what she had before. She had no fever, chills or cough. No unusual shortness of breath. At the pain is currently more or less constant with some waxing and waning. At the time of examination, patient has some tightness/aching sensation. But most of the pain is gone. Patient also gives a history of episodes of sweating with extreme fatigue couple of months. Usually this happens with activities. No associated nausea or vomiting. No chest pain, palpitations or shortness of breath. She has no previous history of coronary coronary disease, myocardial infarction or congestive heart failure. Her grandmother had a myocardial infarction in her 80s. One of her sisters had a heart attack in her 60s. No other relevant family history. She denies any smoking abuse. However she been a passive smoker for many years. Patient has been compliant with her medications. No recent medication changes. Review of Systems Narrative: CONSTITUTIONAL: No fever or chills. EYES: No blurring of vision or other visual disturbances lately. ENT: No hoarseness of voice, auditory disturbances or sore throat. CARDIOVASCULAR: As mentioned above. RESPIRATORY: No significant cough. GASTROINTESTINAL: GERD GENITOURINARY: History of nephrectomy, chronic kidney disease INTEGUMENTARY: No skin rashes or history of skin cancer. NEURO: No transient ischemic attacks or amaurosis. PSYCHIATRIC: Major depressive disorder HEMATOLOGIC: No bleeding disorders or significant anemia. ENDOCRINE: No history of polyuria or polydipsia. MUSCULOSKELETAL: No recent joint pain or swelling. ALLERGY/IMMUNOLOGY: As mentioned above. Medications/Allergies Home Medications ?Medication ?Instructions ?Recorded ?Confirmed ?Last Taken ?Type ezetimibe 10 mg tablet 10 mg PO DAILY 01/16/25 09/19/25 09/19/25 History amlodipine 5 mg tablet 5 mg PO DAILY #30 tabs 01/18/25 09/19/25 09/19/25 Rx bupropion HCl 300 mg 24 hr tablet, 300 mg PO QAM #30 tabs 04/05/25 09/19/25 09/19/25 Rx extended release (Wellbutrin XL) duloxetine 60 mg capsule,delayed 60 mg PO DAILY #30 caps 04/05/25 09/19/25 09/19/25 Rx release duloxetine 30 mg capsule,delayed 30 mg PO DAILY #30 caps 07/07/25 09/19/25 09/19/25 Rx release famotidine 20 mg tablet 20 mg PO BID 09/19/25 09/19/25 09/19/25 History polyethylene glycol 3350 17 See Rx Instructions .Route .COMPLEX 09/19/25 09/19/25 09/19/25 History gram/dose oral powder tizanidine 2 mg tablet 4 mg PO Q8H PRN Spasms 09/19/25 09/19/25 Unknown History Allergies Allergy/AdvReac Type Severity Reaction Status Date / Time No Known Allergies Allergy Verified 07/07/25 14:09 Current Medications Generic Name Dose Route Start Last Admin Trade Name Freq PRN Reason Stop Dose Admin Docusate Sodium 100 mg 09/19/25 17:00 09/19/25 18:19 Docusate Sodium 100 Mg Capsule PO 100 mg BID SREEDHAR Administration PFSH Acute PFSH: Medical History Psychiatric care History of kidney stones Stent x 2, lithotripsy x 2 Dyslipidemia Osteoarthritis involving multiple joints on both sides of body ELDER (generalized anxiety disorder) Major depressive disorder, remission status unspecified, unspecified whether recurrent GERD (gastroesophageal reflux disease) Benign essential HTN Surgical History History of partial hysterectomy 2016 History of cholecystectomy History of delivery x 4 Family History Grandmother Diabetes mellitus, type 2 Heart disease Hypertension Mother Hypertension Stroke Social History Smoking and tobacco/nicotine status: never used tobacco/nicotine Alcohol intake: current Alcohol intake frequency: holidays/special occasions only Substance/Drug Use: never Adopted: No Household members: spouse and children Housing: House Marital status: Highest education level completed: Associate Degree: Occupational, Technical, Vocational Program service: No Current occupational status: employed Current occupational exposures/hazards: No Vitals/I&O/Wt Last Vital Signs Temp 97.9 F 09/19/25 16:38 Pulse 77 09/19/25 16:38 Resp 16 09/19/25 16:38 BP 143/79 09/19/25 16:38 Pulse Ox 96 09/19/25 16:38 O2 Del Method Room Air 09/19/25 18:09 Weight last 48 hrs Weight 208 lb 1.862 oz Weight 205 lb Physical Exam Narrative: GENERAL: The patient is alert and oriented times three. Not in any acute distress. HEENT: No significant pallor, icterus or lymphadenopathy.Oral cavity: There are no mucous membrane lesions. NECK: Trachea appears to be central. No masses noted. No JVD or thyromegaly appreciated. RESPIRATORY: Chest is symmetrical. No intercostals muscle retraction or any accessory muscle activation. There is no chest wall tenderness. Breath sounds are heard bilaterally. No rales or rhonchi heard. No evidence of any consolidation. BREASTS: Deferred. HEART: The heart sounds are normal. No S3 or S4. No significant murmurs. No pericardial rub ABDOMEN: No vessel pulsations or distention. No tenderness. No organomegaly appreciated. Bowel sounds are normally heard. : Deferred. RECTAL: Deferred. LYMPHATIC: No lymphadenopathy noted in the neck. EXTREMITIES: No edema or cyanosis. No clubbing. MUSCULOSKELETAL: No acute joint deformities or swelling SKIN: There are no significant rashes or ecchymosis NEUROPSYCHIATRIC: The patient is alert and oriented x3. Appears to be in a good mood. No tremors or rigidity noted. Data 09/19/25 12:17 09/19/25 12:17 Other Labs: Laboratory Results - last 24 hr 09/19/25 09/19/25 09/19/25 12:17 13:10 17:52 WBC 7.75 RBC 4.34 Hgb 12.90 Hct 39.4 MCV 90.8 MCH 29.7 MCHC 32.7 RDW 13.2 Plt Count 305 MPV 9.4 Neut % (Auto) 66.4 Lymph % (Auto) 23.6 [place] % (Auto) 7.9 Eos % (Auto) 0.9 Baso % (Auto) 0.9 Neut # (Auto) 5.15 Lymph # (Auto) 1.8 [place] # (Auto) 0.6 Eos # (Auto) 0.1 Baso # (Auto) 0.1 Nucleated RBC % (auto) 0 Nucleated RBCs # 0.0 PT 12.30 INR 0.85 APTT 26.8 Sodium 136 Potassium 4.8 Chloride 102 Carbon Dioxide 22 Anion Gap 16.8 BUN 15 Creatinine 1.4 H GFR Calculation 39.2 L Glucose 93 Calculated Osmolality 283 L Calcium 9.4 Magnesium 2.3 Total Bilirubin 0.4 AST 23 ALT 17 Alkaline Phosphatase 127 H Troponin T Baseline 15 H Troponin T 60 Minute 13.35 H Delta Troponin T -1.65 L Troponin T Hi Sens 6Hr 15.24 H Troponin T Hi Sens 6Hr Delta 0.24 NT-Pro-B Natriuret Pep 94 Total Protein 7.3 Albumin 4.6 Globulin 2.7 Lipase 40 TSH 2.00 EKG 1: My Interpretation: The EKG showed normal sinus rhythm with nonspecific ST-T changes A&P Assessment and plan 1. Chest pain, unspecified type: The patient's chest pain is atypical. However in view of the risk factors and the nonspecific EKG changes, possibility of underlying coronary ischemia causing the symptom is a consideration. For further evaluation, an echocardiogram would be helpful. Patient may be treated with nitrates, beta-blockers and subcu Lovenox Once the myocardial infection is ruled out, she may benefit from a stress test 2. Benign essential HTN: Blood pressure is mildly elevated. Need to optimize the antihypertensive medications. 3. Dyslipidemia: May continue on the current medications. 4. Major depressive disorder, remission status unspecified, unspecified whether recurrent: Management as per the primary. 5. History of left nephrectomy: Close monitoring of the kidney function would be appropriate. 6. Osteoarthritis involving multiple joints on both sides of body: Management as per the primary Plan: Serial l cardiac enzymes and EKGs. Sublingual nitroglycerin on a as needed basis. Subcu Lovenox, aspirin, beta-melanie Echocardiogram to evaluate LV function and rule out any other pathology. Possible Myocardial perfusion imaging in the morning, if the myocardial infarction is ruled out. Based on the results, further recommendations will be made Thank for the opportunity to evaluate this patient and make the recommendation PDMP PDMP Reviewed: Not Reviewed Coding Level of Care Code 26145 Diagnoses Chest pain, unspecified type R07.9 Chest pain type: unspecified Benign essential HTN I10 Dyslipidemia E78.5 Major depressive disorder, remission status unspecified, unspecified whether recurrent F32.9 Active/Remission status: remission status unspecified Major depression recurrence: unspecified whether recurrent History of left nephrectomy Z90.5 Osteoarthritis involving multiple joints on both sides of body M15.9
[2025-09-19 19:58] LABS: Estmated Average Glucose 120; Hemoglobin A1C 5.8 % (4.0-6.0)
[2025-09-19] MEDS: pantoprazole 40 mg SDV IVP (21:45)
[2025-09-19] MEDS: morphine 4 mg/mL SDV 1 mL 2 MG IVP (21:46)
[2025-09-20] VITALS (55 sets, daily range): BP systolic 116–138; BP diastolic 75–87; PULSE 67–90; RESP 10–27; TEMP 36.5–36.8; O2SAT 92–97
--- NOTE | 2025-09-20 01:20 | ECG_ITS ---
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 Measurements Intervals [place] Rate: 70 P: 19 SC: 166 QRS: -12 QRSD: 94 T: 6 QT: 395 QTc: 429 Interpretive Statements SINUS RHYTHM NONSPECIFIC T-WAVE ABNORMALITY Compared to ECG 09/19/2025 18:01:38 No significant changes Electronically Signed On 09-20-2025 21:25:20 [employer] by Iain Garcia M.D. [email or web address]
[2025-09-20] MEDS: morphine 4 mg/mL SDV 1 mL 2 MG IVP (01:59)
[2025-09-20] MEDS: ondansetron 2 mg/ML SDV 2 mL 4 MG IVP ×2 (07:39→11:14)
[2025-09-20] MEDS: aminophylline 25 mg/mL SDV 20 mL IVP (07:41)
--- NOTE | 2025-09-20 08:27 | PC.NURSE ---
Pt returned from stress test.
--- NOTE | 2025-09-20 08:29 | PC.NURSE ---
Provider ordered Tums 1000. Order entered.
--- NOTE | 2025-09-20 08:50 | P.DS_ITS ---
Discharge Providers Date of Admission: 09/19/25 16:08 Date of Discharge: September 20, 2025 Attending Provider at Admission: Logan Stapleton Attending Provider at Discharge: Alva Griffin NP Primary Care Provider: Elva Draper NP Diagnoses at Discharge Discharge Diagnosis 1. Chest pain, unspecified type: 2. Benign essential HTN: 3. Dyslipidemia: 4. Major depressive disorder, remission status unspecified, unspecified whether recurrent: 5. History of left nephrectomy: 6. Osteoarthritis involving multiple joints on both sides of body: Reason for Visit Reason for Visit: cp Brief History: Admission: Bruce Ballesteros is a 54 year old female w/ pmhx of HTN, dyslipidemia, obesity, ELDER, MDD, and GERD presents to the ED today w/ c/o chest pain. Patient states that she had a anginal episode last night that began around 1930- she took a muscle relaxer and aspirin and went to bed woke up around 0200 with persisting chest pain. She reports the pain radiated to her back last night. Today patient came in because chest pain changed since over night, she reports pain to left central chest described as tightness, pressure, squeezing. Patient states, It feels like something sitting on my chest. She reports associated s/s of palpitations, shortness of breath with exertion, and reflux-like symptoms. Patient denies fever, shortness of breath, cough, N/V/D, ABD pain, changes in bowel/bladder habits, and any recent medication changes. Patient will be admitted to hospitalist services for further medical management and care. While in ED a CBC, CMP, troponin series, BNP was obtained and resulted as follows: CBC was unremarkable. 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 Troponin baseline 15, Troponin 2-hour 13.35, delta troponin T -1.65. While in the ED the following medications were administered: Aspirin 324 mg p.o., nitroglycerin 0.4 mg sublingual, Zofran 4 mg IVP, morphine 4 mg IVP. Hospital Course Hospital Course Chest Pain ACS r/o ? Troponin baseline 15, Troponin 2-hour 13.35, delta troponin T -1.65. ? 09/19: EKG 1306: NSR, no ST changes, QRS 83, QTc 428, HR 72 ? 12/15: EKG 1145: NSR, no ST changes, QRS 80, QTc 432, HR 82 ? 09/19: CXR: No acute process. No infiltrate. No pneumothorax. ? GI cocktail trial- pt complaining of reflex like symtoms ? Cardiology consulted-Dr. Garcia recommendations and expertise appreciated. ? Echo: Normal left ventricular size and systolic function, EF 61%. ? Stress test completed ? Discharge recommendations per Cardiology HTN ? Continue home medication amlodipine 5 mg PO dly ? Monitor vital signs as per protocol Dyslipidemia ? Lipid panel ordered, pending ? Continue home medication Ezetimibe 10 mg PO dly GERD ? Hold home medication famotidine 20 mg PO dly ? Protonix 40 mg PO dly MDD ELDER ? Continue home medication Bupropion HCI 300 mg PO dly, Duloxetine 90 mg PO dly Discharge: Patient had stress test reviewed by cardiolgis , normal echo with resolution of chest pain. Suspect chest pain caused by GERD, advised continued adherence to PPI. Patient is advised to follow-up with primary care provider in 1 to 2 days and cardiology at the next available appointment. Discharge is in stable condition in care of family, all questions and concerns addressed to the patient prior to discharge. Physical Exam Narrative: GENERAL: The patient is alert and oriented times three. Not in any acute distress. HEENT: No significant pallor, icterus or lymphadenopathy.Oral cavity: There are no mucous membrane lesions. NECK: Trachea appears to be central. No masses noted. No JVD or thyromegaly appreciated. RESPIRATORY: Chest is symmetrical. No intercostals muscle retraction or any accessory muscle activation. There is no chest wall tenderness. Breath sounds are heard bilaterally. No rales or rhonchi heard. No evidence of any consolidation. BREASTS: Deferred. HEART: The heart sounds are normal. No S3 or S4. No significant murmurs. No pericardial rub ABDOMEN: No vessel pulsations or distention. No tenderness. No organomegaly appreciated. Bowel sounds are normally heard. : Deferred. RECTAL: Deferred. LYMPHATIC: No lymphadenopathy noted in the neck. EXTREMITIES: No edema or cyanosis. No clubbing. MUSCULOSKELETAL: No acute joint deformities or swelling SKIN: There are no significant rashes or ecchymosis NEUROPSYCHIATRIC: The patient is alert and oriented x3. Appears to be in a good mood. No tremors or rigidity noted. Discharge Data Studies Completed and Pending Completed Studies During Hospitalization Category Date Time Status Cardiac Stress Test MIBI [Sestamibi Stress Test Request Exams 09/19/25 17:09 Draft ] Routine XR chest 1V portable [id number] Stat Exams 09/19/25 11:39 Completed CV. echo complete* [id number] Routine Ultrasound 09/19/25 17:08 Completed Pending at discharge Category Date Time Status Complete Blood Count w/Auto AM LABS Lab 09/20/25 04:00 Ordered Comprehensive Metabolic Panel AM LABS Lab 09/20/25 04:00 Ordered Magnesium AM LABS Lab 09/20/25 04:00 Ordered NM abel perf SPECT r/s* [id number] Routine Nuc Med 09/20/25 17:09 Taken Radiology Impressions Chest X-Ray 09/19/25 11:39 IMPRESSION: Stable findings. Laboratory Results WBC 7.75 10^3/uL (3.29-11.43) 09/19/25 12:17 RBC 4.34 10^6/uL (3.85-5.65) 09/19/25 12:17 Hgb 12.90 g/dL (11.27-16.99) 09/19/25 12:17 Hct 39.4 % (36-47) 09/19/25 12:17 MCV 90.8 fl (85-98) 09/19/25 12:17 MCH 29.7 pg (27-33) 09/19/25 12:17 MCHC 32.7 g/dL (30-55) 09/19/25 12:17 RDW 13.2 % (12.1-15.1) 09/19/25 12:17 Plt Count 305 10^3/cmm (157-399) 09/19/25 12:17 MPV 9.4 fL (7.4-10.4) 09/19/25 12:17 Neut % (Auto) 66.4 % 09/19/25 12:17 Lymph % (Auto) 23.6 % 09/19/25 12:17 [place] % (Auto) 7.9 % 09/19/25 12:17 Eos % (Auto) 0.9 % 09/19/25 12:17 Baso % (Auto) 0.9 % 09/19/25 12:17 Neut # (Auto) 5.15 10^3/uL (1.8-7.7) 09/19/25 12:17 Lymph # (Auto) 1.8 10^3/uL (0.8-4.8) 09/19/25 12:17 [place] # (Auto) 0.6 10^3/uL (0.2-0.9) 09/19/25 12:17 Eos # (Auto) 0.1 10^3/uL (0.0-0.8) 09/19/25 12:17 Baso # (Auto) 0.1 10^3/uL (0.0-0.1) 09/19/25 12:17 Nucleated RBC % (auto) 0 % 09/19/25 12:17 Nucleated RBCs # 0.0 /100WBC 09/19/25 12:17 PT 12.30 SECONDS (12.1-14.9) 09/19/25 12:17 INR 0.85 (0.8-1.2) 09/19/25 12:17 APTT 26.8 SECONDS (23.9-36.7) 09/19/25 12:17 Sodium 136 mmol/L (136-145) 09/19/25 12:17 Potassium 4.8 mmol/L (3.5-5.1) 09/19/25 12:17 Chloride 102 mmol/L (98-107) 09/19/25 12:17 Carbon Dioxide 22 mmol/L (22-29) 09/19/25 12:17 Anion Gap 16.8 (5-19) 09/19/25 12:17 BUN 15 mg/dL (6-20) 09/19/25 12:17 Creatinine 1.4 mg/dL (0.5-0.9) H 09/19/25 12:17 GFR Calculation 39.2 mL/min (90-130) L 09/19/25 12:17 Glucose 93 mg/dL (65-115) 09/19/25 12:17 Estimat Average Glucose 120 09/19/25 12:17 Hemoglobin A1c 5.8 % (4.0-6.0) 09/19/25 12:17 Calculated Osmolality 283 mOsm/kg (285-295) L 09/19/25 12:17 Calcium 9.4 mg/dL (8.5-10.5) 09/19/25 12:17 Magnesium 2.3 mg/dL (1.7-2.3) 09/19/25 13:10 Total Bilirubin 0.4 mg/dL (0.15-1.2) 09/19/25 12:17 AST 23 U/L (0-32) 09/19/25 12:17 ALT 17 U/L (0-33) 09/19/25 12:17 Alkaline Phosphatase 127 U/L (35-105) H 09/19/25 12:17 Troponin T Baseline 15 ng/L (0-10) H 09/19/25 12:17 Troponin T 60 Minute 13.35 ng/L (0-10) H 09/19/25 13:10 Delta Troponin T -1.65 ABS# (0-10) L 09/19/25 13:10 Troponin T Hi Sens 6Hr 15.24 ng/L (0-10) H 09/19/25 17:52 Troponin T Hi Sens 6Hr Delta 0.24 ng/L (0-12) 09/19/25 17:52 NT-Pro-B Natriuret Pep 94 pg/mL (0-125) 09/19/25 12:17 Total Protein 7.3 g/dL (6.6-8.7) 09/19/25 12:17 Albumin 4.6 g/dL (3.5-5.2) 09/19/25 12:17 Globulin 2.7 g/dL (1.3-4.6) 09/19/25 12:17 Lipase 40 U/L (13-60) 09/19/25 12:17 TSH 2.00 uIU/mL (0.27-4.20) 09/19/25 13:10 Vitals Last Vital Signs Temp 98.3 F 09/20/25 03:51 Pulse 80 09/20/25 08:11 Resp 18 09/20/25 03:51 BP 136/81 09/20/25 08:11 Pulse Ox 95 09/20/25 03:51 O2 Del Method Room Air 09/20/25 03:51 Discharge Plan Discharge Patient Disposition: Home Condition: Stable Prescriptions: New aspirin 325 mg Tablet 325 mg PO DAILY 30 Days Qty: 30 0RF pantoprazole 40 mg Tablet,Delayed Release (Dr/Ec) 40 mg PO DAILY 30 Days Qty: 30 0RF Continued duloxetine 30 mg capsule,delayed release(DR/EC) 30 mg PO DAILY Qty: 30 11RF Rx Instructions: along with 60 mg for total of 90 mg daily. bupropion HCl [Wellbutrin XL] 300 mg tablet extended release 24 hr 300 mg PO QAM Qty: 30 11RF duloxetine 60 mg capsule,delayed release(DR/EC) 60 mg PO DAILY Qty: 30 11RF Rx Instructions: along with 30mg for a total of 90mg daily. ezetimibe 10 mg Tablet 10 mg PO DAILY amlodipine 5 mg tablet 5 mg PO DAILY Qty: 30 0RF tizanidine 2 mg tablet 4 mg PO Q8H PRN (Reason: Spasms) famotidine 20 mg tablet 20 mg PO BID polyethylene glycol 3350 17 gram/dose powder See Rx Instructions .ROUTE .COMPLEX Rx Instructions: MIX 17 GRAMS IN WATER THEN DRINK BY MOUTH DAILY. Discharge Order = DC NOW: Discharge Order (Routine); Ordered 09/20/25 Ordered By: Alva Griffin Referrals: Cassandra Romero NP [Nurse Practitioner, Cardiology] - 10/10/25 2:00 pm Elva Draper NP [Primary Care Provider, Family Practice] - 09/26/25 10:45 am Discharge Diet: Diabetic Discharge Activity: Resume usual activity Patient Instructions: Chest Pain (DC), Low Fat Diet (DC), Hypertension (DC), Chest Pain Stoplight, Opioid Safety, Patient Portal & Laura Instructions Discharge Attestations Time Spent in Discharge Care*: greater than 30 min Quality Metrics Clinical Quality Measures [ No reported AMI, CVA or VTE this stay] Coding Level of Care Code 15710 Diagnoses Chest pain, unspecified type R07.9 Chest pain type: unspecified Benign essential HTN I10 Dyslipidemia E78.5 Major depressive disorder, remission status unspecified, unspecified whether recurrent F32.9 Active/Remission status: remission status unspecified Major depression recurrence: unspecified whether recurrent History of left nephrectomy Z90.5 Osteoarthritis involving multiple joints on both sides of body M15.9
[2025-09-20 09:39] LABS: Hematocrit 36.2 % (36-47); Hemoglobin 11.70 g/dL (11.27-16.99); Mean Corpuscular HGB Conc 32.3 g/dL (30-55); Mean Corpuscular Hemoglobin 29.9 pg (27-33); Mean Corpuscular Volume 92.6 fl (85-98); Nucleated Red Blood Cells % 0 %; Platelet Count 264 10^3/cmm (157-399); Red Blood Count 3.91 10^6/uL (3.85-5.65); White Blood Count 5.83 10^3/uL (3.29-11.43)
[2025-09-20 10:11] LABS: Alanine Aminotransferase 67 U/L (0-33); Albumin Level 4.0 g/dL (3.5-5.2); Alkaline Phosphatase 138 U/L (35-105); Anion Gap 16.8 (5-19); Aspartate Amino Transferase 86 U/L (0-32); Blood Urea Nitrogen 19 mg/dL (6-20); Calcium 9.0 mg/dL (8.5-10.5); Carbon Dioxide 21 mmol/L (22-29); Chloride 103 mmol/L (98-107); Globulin 3.0 g/dL (1.3-4.6); Glucose 180 mg/dL (65-115); Magnesium 2.4 mg/dL (1.7-2.3); Osmolality Calculated 289 mOsm/kg (285-295); Potassium 4.8 mmol/L (3.5-5.1); Sodium 136 mmol/L (136-145); Total Protein 7.0 g/dL (6.6-8.7)
--- NOTE | 2025-09-20 10:58 | PM.PN ---
Subjective Subjective: Patient was found to have a small area of minimal inconsistent reversibility in the inferolateral region, based on the Myocardial perfusion imaging today. She is remaining stable with no chest pain or shortness of breath. The vitals are remaining stable. Medications: Medication Review Details: Current Medications Acetaminophen (Acetaminophen 325 Mg Tablet) 650 mg PO Q6H PRN PRN Reason: Mild/Mod Pain Or Temp >/= 101 Aminophylline (Aminophylline 25 Mg/Ml Sdv 20 Ml) 25 mg IVP Q2M PRN PRN Reason: see dose instructions Stop: 09/21/25 06:43 Last Admin: 09/20/25 07:41 Dose: 25 mg Aspirin (Aspirin 325 Mg Tablet) 325 mg PO DAILY [facility] Last Admin: 09/20/25 04:44 Dose: 325 mg Bisacodyl (Bisacodyl 5 Mg Tablet) 10 mg PO DAILY PRN; Protocol PRN Reason: Constipation (see protocol) Calcium Carbonate (Calcium Carbonate 500 Mg Chew Tablet) 1,000 mg PO Q4H PRN PRN Reason: heartburn Last Admin: 09/20/25 09:00 Dose: 1,000 mg Docusate Sodium (Docusate Sodium 100 Mg Capsule) 100 mg PO BID [facility] Last Admin: 09/20/25 04:44 Dose: 100 mg Morphine Sulfate (Morphine 4 Mg/Ml Sdv 1 Ml) 2 mg IVP Q1H PRN PRN Reason: SEVERE PAIN Last Admin: 09/20/25 01:59 Dose: 2 mg Nitroglycerin (Nitroglycerin 0.4 Mg Sublingual Tablet) 0.4 mg SUBLINGUAL Q5M PRN PRN Reason: CHEST PAIN Nitroglycerin (Nitroglycerin 0.4 Mg Sublingual Tablet) 0.4 mg SUBLINGUAL Q5M PRN PRN Reason: CHEST PAIN Stop: 09/21/25 06:43 Ondansetron HCl (Ondansetron 2 Mg/Ml Sdv 2 Ml) 4 mg IVP Q8H PRN PRN Reason: vomiting, or N/V if npo Ondansetron HCl (Ondansetron 2 Mg/Ml Sdv 2 Ml) 4 mg IVP Q2M PRN PRN Reason: NAUSEA Last Admin: 09/20/25 07:39 Dose: 4 mg Pantoprazole Sodium (Pantoprazole Dr 40 Mg Tablet) 40 mg PO DAILY [facility] Last Admin: 09/20/25 04:44 Dose: 40 mg Regadenoson (Regadenoson 0.4 Mg/5 Ml Syringe) 0.4 mg IVP ONCE PRN PRN Reason: Lexiscan Stress Test Vitals/I&O/Wt Last Vital Signs Temp 98.3 F 09/20/25 03:51 Pulse 81 09/20/25 10:25 Resp 15 09/20/25 10:25 BP 138/87 09/20/25 10:25 Pulse Ox 94 09/20/25 10:25 O2 Del Method Room Air 09/20/25 06:40 09/19/25 09/20/25 09/20/25 22:59 06:59 14:59 Intake Total 240 / 240 Balance 240 / 240 Weight last 48 hrs Weight 212 lb 8.41 oz Weight 212 lb 8.41 oz Weight 208 lb 1.862 oz Weight 205 lb Physical Exam Narrative: GENERAL: The patient is alert and oriented times three. Not in any acute distress. HEENT: No significant pallor, icterus or lymphadenopathy.Oral cavity: There are no mucous membrane lesions. NECK: Trachea appears to be central. No masses noted. No JVD or thyromegaly appreciated. RESPIRATORY: Chest is symmetrical. No intercostals muscle retraction or any accessory muscle activation. There is no chest wall tenderness. Breath sounds are heard bilaterally. No rales or rhonchi heard. No evidence of any consolidation. BREASTS: Deferred. HEART: The heart sounds are normal. No S3 or S4. No significant murmurs. No pericardial rub ABDOMEN: No vessel pulsations or distention. No tenderness. No organomegaly appreciated. Bowel sounds are normally heard. : Deferred. RECTAL: Deferred. LYMPHATIC: No lymphadenopathy noted in the neck. EXTREMITIES: No edema or cyanosis. No clubbing. MUSCULOSKELETAL: No acute joint deformities or swelling SKIN: There are no significant rashes or ecchymosis NEUROPSYCHIATRIC: The patient is alert and oriented x3. Appears to be in a good mood. No tremors or rigidity noted. Data 09/20/25 09:22 09/20/25 09:22 Other Labs: Laboratory Last Values WBC 5.83 10^3/uL (3.29-11.43) 09/20/25 09:22 RBC 3.91 10^6/uL (3.85-5.65) 09/20/25 09:22 Hgb 11.70 g/dL (11.27-16.99) 09/20/25 09:22 Hct 36.2 % (36-47) 09/20/25 09:22 MCV 92.6 fl (85-98) 09/20/25 09:22 MCH 29.9 pg (27-33) 09/20/25 09: MCHC 32.3 g/dL (30-55) 09/20/25 09:22 RDW 13.2 % (12.1-15.1) 09/20/25 09:22 Plt Count 264 10^3/cmm (157-399) 09/20/25 09:22 MPV 9.4 fL (7.4-10.4) 09/20/25 09:22 Neut % (Auto) 79.5 % 09/20/25 09:22 Lymph % (Auto) 14.2 % 09/20/25 09:22 [place] % (Auto) 4.8 % 09/20/25 09:22 Eos % (Auto) 0.3 % 09/20/25 09:22 Baso % (Auto) 0.9 % 09/20/25 09:22 Neut # (Auto) 4.63 10^3/uL (1.8-7.7) 09/20/25 09:22 Lymph # (Auto) 0.8 10^3/uL (0.8-4.8) 09/20/25 09:22 [place] # (Auto) 0.3 10^3/uL (0.2-0.9) 09/20/25 09:22 Eos # (Auto) 0.0 10^3/uL (0.0-0.8) 09/20/25 09:22 Baso # (Auto) 0.1 10^3/uL (0.0-0.1) 09/20/25 09: Nucleated RBC % (auto) 0 % 09/20/25 09: Nucleated RBCs # 0.0 /100WBC 09/20/25 09:22 PT 12.30 SECONDS (12.1-14.9) 09/19/25 12:17 INR 0.85 (0.8-1.2) 09/19/25 12:17 APTT 26.8 SECONDS (23.9-36.7) 09/19/25 12:17 Sodium 136 mmol/L (136-145) 09/20/25 09:22 Potassium 4.8 mmol/L (3.5-5.1) 09/20/25 09:22 Chloride 103 mmol/L (98-107) 09/20/25 09:22 Carbon Dioxide 21 mmol/L (22-29) L 09/20/25 09:22 Anion Gap 16.8 (5-19) 09/20/25 09:22 BUN 19 mg/dL (6-20) 09/20/25 09:22 Creatinine 1.9 mg/dL (0.5-0.9) H 09/20/25 09:22 GFR Calculation 27.5 mL/min (90-130) L 09/20/25 09:22 Glucose 180 mg/dL (65-115) H 09/20/25 09:22 Estimat Average Glucose 120 09/19/25 12:17 Hemoglobin A1c 5.8 % (4.0-6.0) 09/19/25 12:17 Calculated Osmolality 289 mOsm/kg (285-295) 09/20/25 09:22 Calcium 9.0 mg/dL (8.5-10.5) 09/20/25 09:22 Magnesium 2.4 mg/dL (1.7-2.3) H 09/20/25 09:22 Total Bilirubin 0.5 mg/dL (0.15-1.2) 09/20/25 09:22 AST 86 U/L (0-32) H 09/20/25 09:22 ALT 67 U/L (0-33) H 09/20/25 09:22 Alkaline Phosphatase 138 U/L (35-105) H 09/20/25 09:22 Troponin T Baseline 15 ng/L (0-10) H 09/19/25 12:17 Troponin T 60 Minute 13.35 ng/L (0-10) H 09/19/25 13:10 Delta Troponin T -1.65 ABS# (0-10) L 09/19/25 13:10 Troponin T Hi Sens 6Hr 15.24 ng/L (0-10) H 09/19/25 17:52 Troponin T Hi Sens 6Hr Delta 0.24 ng/L (0-12) 09/19/25 17:52 NT-Pro-B Natriuret Pep 94 pg/mL (0-125) 09/19/25 12:17 Total Protein 7.0 g/dL (6.6-8.7) 09/20/25 09:22 Albumin 4.0 g/dL (3.5-5.2) 09/20/25 09:22 Globulin 3.0 g/dL (1.3-4.6) 09/20/25 09:22 Lipase 40 U/L (13-60) 09/19/25 12:17 TSH 2.00 uIU/mL (0.27-4.20) 09/19/25 13:10 A&P Assessment and plan 1. Chest pain, unspecified type: The results of the Myocardial perfusion imaging and its implications were discussed with the patient in detail. Since the area of ischemia seems to be small with a questionable reliability and also since the patient is remaining stable with no significant chest pain, it was thought to be appropriate to continue the risk modifying measures. 2. Benign essential HTN: The blood pressure seems to be getting under control. May continue on the current medications. 3. Dyslipidemia: May continue on the current medications. 4. Major depressive disorder, remission status unspecified, unspecified whether recurrent: Management as per the primary. 5. History of left nephrectomy: Close monitoring of the kidney function would be appropriate. 6. Osteoarthritis involving multiple joints on both sides of body: Management as per the primary Plan: Since the patient is remaining stable with no significant symptoms, it may be appropriate for her to be discharged home. However if she has any recurrence of chest pain or any new cardiac symptoms, instructed to contact our office. Please me in appointment to be seen in the office in 2 weeks to be seen by nurse practitioner. PDMP PDMP Reviewed: Not Reviewed Attestations Medical Necessity Statement*: Disposition as per the primary Coding Level of Care Code 87360 Diagnoses Chest pain, unspecified type R07.9 Chest pain type: unspecified Benign essential HTN I10 Dyslipidemia E78.5 Major depressive disorder, remission status unspecified, unspecified whether recurrent F32.9 Active/Remission status: remission status unspecified Major depression recurrence: unspecified whether recurrent History of left nephrectomy Z90.5 Osteoarthritis involving multiple joints on both sides of body M15.9
--- NOTE | 2025-09-20 10:59 | PC.NURSE ---
Dr. Garcia is called and he okay'd to discharge patient. He wants her to follow up in 1-2 weeks with cardiology.
--- NOTE | 2025-09-20 11:01 | PC.NURSE ---
Patient ambulated in the hallway a total of 300 feet. Vital remained stable.
--- NOTE | 2025-09-20 17:09 | NMCV_ITS ---
NM abel perf SPECT r/s* [id number] Bruce Ballesteros Age: 54 Gender: F : 1970 Exam Date: 09/20/2025 06:55 Ordering Phys: Iain Garcia MD ([email or web address]) Technologist: JENNIFER Hernandez Exam Location: [facility] Indications: cp STRESS TEST Please see separate stress test report in [facility] for full findings IMAGE PROTOCOL Rest/Stress 1 Lexiscan Day Radiopharmaceutical Dose (mCi) Administration Site Administered by Rest: Tc-99m 10.6 IV JENNIFER Hernandez Sestamibi Stress:Tc-99m 32.6 IV JENNIFER Mcclellan Sestamibi Rest: 20-Sep-2025 60 Discovery 630 Stress: 20-Sep-2025 30 Discovery 630 0.4mg Lexiscan. Images obtained in supine and prone position. SPECT RESULTS Technical Quality: Good Raw Data Analysis: Normal Image Corrections: No attenuation or motion correction applied Summed Stress Score: 3 Summed Rest Score: 3 Summed Difference Score: 1 PERFUSION FINDINGS Small area of minimal to moderate decrease tracer uptake involving the apical lateral and apical inferior region. Slight reversibility was noted in the apical inferior region. However with the prone imaging, no significant reversibility was noted FUNCTIONAL RESULTS (calculated via Gated SPECT) Stress Image LV EF (%): 74 Stress EDV (mL):70 TID: 0.94 Stress ESV (mL):18 FUNCTIONAL FINDINGS: Segmental wall motion analysis revealing no gross wall motion abnormalities IMPRESSIONS 1. Myocardial perfusion imaging revealing small area of minimal to moderately decreased tracer uptake involving the apical lateral and apical inferior region with slight reversibility suggesting myocardial scarring with ischemia in the distribution of the right coronary artery. However in view of the inconsistency with the prone imaging, the reliability is low 2. Normal LV ejection fraction 74% 3. LV wall motion analysis revealing no gross wall motion abnormalities. 4. Normal LV volume No similar previous studies are available for comparison Clinical correlation is recommended Dr Iain Garcia MD FAC (Electronically Signed) Final Date: 20 September 2025 09:21 S
== END 2025-09-20 13:24 | disposition home or self-care (01) ==
LOC: ER 14:09 → CSU 16:29
PROVIDERS: Admitting Provider Internal Medicine; Emergency Provider Emergency Medicine; Visit Provider Registered Nurse
DX: R07.9 Chest pain, unspecified (principal); I10 Essential (primary) hypertension; E78.5 Hyperlipidemia, unspecified; F32.9 Major depressive disorder, single episode, unspecified; Z90.5 Acquired absence of kidney; M15.9 Polyosteoarthritis, unspecified; Z79.82 Long term (current) use of aspirin; Z79.891 Long term (current) use of opiate analgesic; K21.9 Gastro-esophageal reflux disease without esophagitis; E66.9 Obesity, unspecified; Z68.36 Body mass index [BMI] 36.0-36.9, adult; F41.9 Anxiety disorder, unspecified
CPT/HCPCS: 36415; 71045; 78452; 80053; 83036; 83690; 83735; 83880; 84443; 84484; 85025; 85610; 85730; 93005; 93017; 93306; 96374; 96375; 96376; 99291; 99292; A9500; G0378; J0280; J2270; J2405; J2470; J2785; J9999